=== PATIENT | male | born 1955 | race Caucasian/White ===

== ENCOUNTER 2017-01-07 17:05 | Inpatient (IN) ==
[2017-01-07] MEDS ORDERED: Ondansetron 4 MG/2 ML VIAL IVP ONE (18:09)
[2017-01-07] MEDS ORDERED: *HR* FentaNYL (PF) 100 MCG/2 ML VIAL IVP ONE (18:09)
--- NOTE | 2017-01-07 18:44 | Emergency Department Note ---
Disposition Clinical Impression: Pancreatitis Qualifiers: Chronicity: acute Pancreatitis type: other Acute pancreatitis complication: unspecified Qualified Code(s): K85.80 - Other acute pancreatitis without necrosis or infection Diverticulitis Qualifiers: Diverticulitis site: large intestine Diverticulitis bleeding: without bleeding Diverticulitis complication: without perforation or abscess Qualified Code(s): K57.32 - Diverticulitis of large intestine without perforation or abscess without bleeding Disposition: Admitted As Inpatient Condition: Fair Abdominal Pain HPI - General Chief Complaint: ED Abdominal Pain Stated Complaint: Abdominal Pain Time Seen by Provider: 01/07/17 17:08 Source: patient, EMS Nursing Notes Reviewed: Yes Vital Signs Reviewed: Yes - History of Present Illness HPI Narrative: 61-year-old male with a history of prediabetes, hypertension,, diverticulosis, CAD presents to the emergency department with a chief complaint of abdominal pain. He reports the pain being on the left side, has been sharp and nonradiating. He reports the pain being very severe. Has not had a He denies any fevers or chills. No nausea or vomiting. He hasn't had any appetite or eating in 2 days. Denies black or bloody stools. His last bowel movement was yesterday. he went to the [place] earlier today where they performed a CT scan showing Inflammation around the pancreas concerning for pancreatitis associate with an elevated lipase at 852 associated with a leukocytosis at 19.5. The inflammation extended around the stomach, duodenum and into the colon which was reported as being concerning for diverticulitis. He was given a dose of IV Zosyn and sent to the emergency department. In the ED he is complaining of left -sided abdominal pain particularly left lower quadrant. He denies any chest pain or shortness of breath. Denies any numbness or tingling to the extremities Pain Scale: 7 - Related Data Home Medications Medication Instructions Recorded Confirmed Atenolol [Tenormin] 75 mg PO DAILY 01/07/17 01/07/17 Budesonide/Formoterol 160/4.5 2 puff IH BIDR 01/07/17 01/07/17 [Symbicort 160/4.5] Cyclobenzaprine [Flexeril] 10 mg PO HS 01/07/17 01/07/17 Isosorbide MONOnitrate (24 HR) 60 mg PO DAILY 01/07/17 01/07/17 [Imdur] Lidocaine Patch [Lidoderm 5% patch] 1 each TP DAILY 01/07/17 01/07/17 Loratadine [Claritin] 10 mg PO DAILY 01/07/17 01/07/17 Multivitamin [Multi-Day Vitamins] 1 each PO DAILY 01/07/17 01/07/17 Omeprazole [PriLOSEC] 20 mg PO DAILY 01/07/17 01/07/17 Simvastatin [Zocor] 10 mg PO HS 01/07/17 01/07/17 Allergies Allergy/AdvReac Type Severity Reaction Status Date / Time codeine AdvReac Anxiety Verified 01/07/17 17:15 tramadol AdvReac Anxiety Verified 01/07/17 17:15 All systems ED: reviewed and negative except as stated. Constitutional: Denies: fever, chills Cardiovascular: Denies: chest pain Respiratory: Denies: cough, dyspnea Gastrointestinal: Reports: abdominal pain. Denies: nausea, vomiting, diarrhea, hematochezia Musculoskeletal: Denies: back pain Neurological: Denies: headache, weakness, numbness Abdominal Pain PMH - Past Medical History Medical history: Reports: COPD, coronary artery disease, hypertension, other Psychiatric history: Reports: depression - Social History Smoking status: Current every day smoker Alcohol use: Reports: heavy Drug use: Reports: none Physical Exam General: Appears to be uncomfortable but awake, alert and oriented Cardiovascular: Regular rate and rhythm. S1, S2. No murmurs, rubs or gallops. Respiratory: Breath sounds clear bilaterally. No wheezing, rales or rhonchi. No resp distress Abdomen: Patient has some voluntary guarding in the upper and left lower abdomen. There is no rebound. He has some diffuse tenderness as well. Normal bowel sounds. No palpable hernias or organomegaly Eyes: No scleral icterus conjunctiva clear HENT: No oral mucosal lesions. Moist mucous membranes Neuro: Alert and oriented 3, no lower extremity weakness Musculoskeletal: Mild bilateral ankle edema, no Tenderness or asymmetry Skin: No lesions. No diaphoresis. Normal turgor. Normal color Psych: Appropriate - General Limitations: no limitations General appearance: alert, in no apparent distress Course Course Narrative: CT scan shows evidence of pancreatitis and diverticulitis. Clinically I feel diverticulitis is likely because he is having quite a bit of left lower quadrant pain. However, he does have inflammation around the pancreas with elevated enzymes so he may have pancreatitis as well. He does have some history of drinking. He is afebrile with stable vital signs. Pain has been controlled the ED. IV antibiotics have already been given. I discussed with the on-call hospitalist, Ximena who accepts for admission, no further orders at this time Vital Signs Temperature 98.0 F 01/07/17 17:06 Pulse Rate 77 01/07/17 17:06 Respiratory Rate 18 01/07/17 17:06 Blood Pressure 117/71 01/07/17 17:06 O2 Sat by Pulse Oximetry 94 01/07/17 17:06 Temperature 98.0 F 01/07/17 17:06 Pulse Rate 75 01/07/17 18:27 Respiratory Rate 18 01/07/17 19:19 Blood Pressure 127/73 01/07/17 19:19 O2 Sat by Pulse Oximetry 93 01/07/17 18:27 Oxygen Delivery Oxygen Delivery Room Air Attestation Statement - Attestation Attestation: I examined this patient and my medical decision-making was reviewed with the [facility]/PA/Advanced Practice Nurse/Resident Physician. I agree with the documented findings, disposition and treatment plan as described except to the extent set forth below. 61-year-old male sent to the ED from the [facility] due to abdominal pain. He has had pain for the past 2 days along with nausea. No diarrhea. No measured fever or chills. No chest pain or dyspnea. No dysuria. He presented to [facility] today and was found to have diverticulitis and pancreatitis. He had a white count 19,000. He was given IV Zosyn and sent to the ED. Pleasant male in no apparent distress. Appears uncomfortable. Oropharynx extremities are ranged dry. Neck is supple. Trachea midline. Chest is clear to auscultation laterally. Abdomen bowel sounds are present. Moderate tenderness to the left abdomen mostly left lower quadrant. No distention. Extremities warm and dry. He was given IV fluids along with control of his pain and nausea. He is admitted to the hospitalist service for further evaluation.
[2017-01-07] MEDS ORDERED: Ringers Solution, Lactated 1,000 ML IVC SCH (18:45)
--- NOTE | 2017-01-07 19:08 | Internal Med History&Physical ---
Date of Encounter: 01/07/17 Time of Encounter: 19:08 Assessment and Plan (1) Pancreatitis Current visit: Yes Status: Acute pt with no significant alcohol consumption history, cholelithiasis or autoimmune history comes in with signs and symptoms concerning for epigastric pathology and found to have pancreatic inflammation on diagnostic imaging, we will get RUQ USG for evaluation of the biliary system, will also check for autoimmune etiology Qualifiers: Chronicity: acute Pancreatitis type: other Acute pancreatitis complication: no infection or necrosis Qualified Code(s): K85.80 - Other acute pancreatitis without necrosis or infection (2) Enteritis Current visit: Yes Status: Acute small bowel related, most likely local effect of the pancreatitis inflammation, we will manage conservatively (3) HTN (hypertension) Current visit: Yes Status: Chronic normotensive, will continue home antihypertensive regimen with BP monitoring Qualifiers: Hypertension type: essential hypertension Qualified Code(s): I10 - Essential (primary) hypertension (4) COPD (chronic obstructive pulmonary disease) Current visit: Yes Status: Chronic no wheezing noted, will do PRN nebs Qualifiers: COPD type: chronic bronchitis Chronic bronchitis type: simple Qualified Code(s): J41.0 - Simple chronic bronchitis (5) DJD (degenerative joint disease) Current visit: Yes Status: Chronic will do pain management Qualifiers: Osteoarthritis location: multiple joints Osteoarthritis type: primary Qualified Code(s): M15.0 - Primary generalized (osteo)arthritis Internal Medicine - H&P: HPI Chief complaint: abdominal pain Admitted From: Hospital to Hospital Transfer Plans for Post Hospital Care: Home History of present illness: Mr. Phillips is a 61 year old male with no prior history of acute pancreatitis/ gallstones/alcohol abuse was sent from the [place] for abdominal pain. e was in his usual state of health until 2 days prior when he began to experience upper mid abdominal pain a few minutes after eating cheese and other foods. The pain was described the as stabbing, patient did not have any description for it, he mentioned that it was so bad he had to catch his breath. This pain has been constant since inception and has had peaks of 10/10 with no radiation to the back pr anywhere else. He denies that any particular position gives him comfort. He reports chills but no fever, nausea or vomiting, he also denies diarrhea. He did not try any pain medication at home but took peptobismul with no effect. He reports having a similar kind of pain sometime ago so he was trying to wait this out. This morning he could not bear it anymore so he went to the [place] where abdominal/pelvic CT scan reported "peripancreatic strandy inflammatory change extending into the small bowel mesentery as well as free pelvic fluid. He was sent here for concern for acute pancreatitis for further management. Past Med Surg Social Fam HX - Past Medical History Source: patient, old records reviewed Medical history: COPD, coronary artery disease, diabetes (prediabetes), hypertension, other (Complete laceration, left long extensor tendon at distal interphalangeal joint, Horton esophagus, ) Psychiatric history: depression - Past Surgical History Surgical History: appendectomy, other (Open repair of extensor tendon laceration , left long finger) - Social History Smoking Status: Current every day smoker Smokeless Tobacco Status: No Alcohol use: rarely (reports about <1 pint of bourbon a month) Drug use: none Current living situation: Home - Independent, With Family Activity Level: Independent ambulation Additional social history: he is and lives at home with his - Family History Mother Living Status: Cause of : Breast Ca Hx Family Cardiac Disorders: Yes (Stroke) Hx Family Cancer: Yes (Breast Ca.) Brother Living Status: Cause of : Throat Ca. Hx Family Cancer: Yes (Throat Ca.) - Additional Family History Additional family history: both parents are , he does not know about his father's medical conditions but his mother had breast cancer and of stroke, no family history of GI problems to his knowledge Internal Medicine - H&P: Meds Atenolol [Tenormin] 75 mg PO DAILY 01/07/17 [History] Budesonide/Formoterol 160/4.5 [Symbicort 160/4.5] 2 puff IH BIDR 01/07/17 [ History] Cyclobenzaprine [Flexeril] 10 mg PO HS 01/07/17 [History] Isosorbide MONOnitrate (24 HR) [Imdur] 60 mg PO DAILY 01/07/17 [History] Lidocaine Patch [Lidoderm 5% patch] 1 each TP DAILY 01/07/17 [History] Loratadine [Claritin] 10 mg PO DAILY 01/07/17 [History] Multivitamin [Multi-Day Vitamins] 1 each PO DAILY 01/07/17 [History] Omeprazole [PriLOSEC] 20 mg PO DAILY 01/07/17 [History] Simvastatin [Zocor] 10 mg PO HS 01/07/17 [History] Allergies codeine Adverse Reaction (Verified 01/07/17 17:15) Anxiety tramadol Adverse Reaction (Verified 01/07/17 17:15) Anxiety All Systems PM: A 10-system review of systems was performed and is negative for pertinent findings except as documented above in the HPI. - Constitutional Vitals: Temp Pulse Resp BP Pulse Ox 98.0 F 75 18 127/73 93 01/07/17 17:06 01/07/17 18:27 01/07/17 18:27 01/07/17 18:27 01/07/17 18:27 General: Elderly male lying in bed all covered up in blankets, looks acutely unwell, awake, alert and oriented HEENT: NC/AT, LULY, EOMI, anicteric sclera, normal conjunctiva, No oral mucosal lesions, dry mucous membranes Cardiovascular: Regular rate and rhythm. S1, S2. No murmurs, rubs or gallops. Respiratory: Breath sounds clear bilaterally. No wheezing, rales or rhonchi. No resp distress Abdomen: moderate abdominal distension, diffuse tenderness worse in the epigastric area with mild guarding but no rebound, normal bowel sounds, no organomegaly Neuro: Alert and oriented 3, CN 2-12 grossly intact, non focal motor and sensory exam Musculoskeletal: Mild bilateral ankle edema, no Tenderness or asymmetry Skin: No lesions. No diaphoresis. Normal turgor. Normal color Psych: Appropriate Internal Med - H&P Results - Labs CBC & Chem 7: 01/07/17 19:41 01/07/17 19:41 - Diagnostic Studies CT scan - abdomen Status: image reviewed by me (reviewed CT abd/pelvis report)
[2017-01-07] MEDS ORDERED: Naloxone 0.4 MG/ML INJ IVP PRN (19:23)
[2017-01-07] MEDS ORDERED: Ondansetron 4 MG/2 ML VIAL IVP PRN (19:23)
[2017-01-07] MEDS ORDERED: Albuterol 2.5 MG/3 ML NEBULIZER IH PRN (19:25)
[2017-01-07 19:48] LABS: Basophils # 0.1 K/mcL (0.0-0.2); Basophils % 0.3 %; Eosinophils # 0.2 K/mcL (0.0-0.6); Hematocrit 44.8 % (37.5-50.1); Hemoglobin 15.3 g/dL (12.9-16.9); Immature Granulocytes % 0.5 % (0-4); Lymphocytes # 2.3 K/mcL (0.6-4.6); Lymphocytes % 12.2 %; Mean Corpuscular HGB Conc 34.2 g/dL (31.6-35.5); Mean Corpuscular Hemoglobin 31.5 pg (28.0-33.3); Mean Corpuscular Volume 92.4 fL (83.0-100.0); Monocytes # 1.4 K/mcL (0.0-1.3); Neutrophils # 15.2 K/mcL (1.6-8.9); Platelet Count 213 K/mcL (140-400); Red Blood Count 4.85 M/mcL (4.19-5.50); Red Cell Distribution Width 14.8 % (11.5-14.5)
[2017-01-07 20:04] LABS: Alanine Aminotransferase 30 Units/L (0-55); Albumin 3.4 g/dL (3.5-5.0); Albumin/Globulin Ratio 0.9 (1.1-2.2); Alkaline Phosphatase 57 Units/L (38-126); Aspartate Amino Transferase 23 Units/L (5-34); BUN/Creatinine Ratio 18 (6-26); Bilirubin,Total 2.1 mg/dL (0.2-1.2); Blood Urea Nitrogen 21 mg/dL (8-26); Calcium 8.5 mg/dL (8.6-10.8); Carbon Dioxide 25 mEq/L (19-29); Chloride 102 mEq/L (98-109); Globulin 3.8 g/dL (2.4-3.5); Glucose 72 mg/dL (70-99); Magnesium 2.2 mg/dL (1.6-2.6); Osmolality,Calculated 286 (280-300); Phosphorous 3.9 mg/dL (2.3-4.7); Potassium 3.7 mEq/L (3.5-4.5); Sodium 137 mEq/L (136-145); Total Protein 7.2 g/dL (6.0-8.3); eGFR For African Americans > 60 (> 60); eGFR For Non-African Americans > 60 (> 60)
[2017-01-07] MEDS ORDERED: *HR* Morphine 2 MG/ML SYRINGE IVP ONE (20:15)
[2017-01-07] MEDS: Ringers Solution, Lactated 1,000 ML IVC SCH (21:25)
[2017-01-07] MEDS: *HR* Heparin 5,000 UNIT/ML VIAL SQ SCH (23:39)
[2017-01-07] MEDS: *HR* Morphine 2 MG/ML SYRINGE IVP PRN (23:39)
[2017-01-08] MEDS: Budesonide/Formoterol 160/4.5 MDI IH SCH ×3 (00:22→20:35)
[2017-01-08 03:29] LABS: Basophils # 0.1 K/mcL (0.0-0.2); Basophils % 0.4 %; Eosinophils # 0.2 K/mcL (0.0-0.6); Eosinophils % 1.2 %; Hematocrit 41.9 % (37.5-50.1); Hemoglobin 14.2 g/dL (12.9-16.9); Immature Granulocytes % 0.7 % (0-4); Lymphocytes # 1.6 K/mcL (0.6-4.6); Lymphocytes % 9.5 %; Mean Corpuscular HGB Conc 33.9 g/dL (31.6-35.5); Mean Corpuscular Hemoglobin 31.2 pg (28.0-33.3); Mean Corpuscular Volume 92.1 fL (83.0-100.0); Mean Platelet Volume 10.6 fL (9.4-12.4); Monocytes # 1.3 K/mcL (0.0-1.3); Monocytes % 7.6 %; Neutrophils # 13.7 K/mcL (1.6-8.9); Platelet Count 208 K/mcL (140-400); Red Blood Count 4.55 M/mcL (4.19-5.50); Red Cell Distribution Width 14.5 % (11.5-14.5); Segmented Neutrophils % 80.6 %
[2017-01-08 03:41] LABS: Alanine Aminotransferase 25 Units/L (0-55); Albumin/Globulin Ratio 0.8 (1.1-2.2); Alkaline Phosphatase 57 Units/L (38-126); Aspartate Amino Transferase 21 Units/L (5-34); BUN/Creatinine Ratio 23 (6-26); Bilirubin,Total 1.5 mg/dL (0.2-1.2); Blood Urea Nitrogen 22 mg/dL (8-26); Calcium 8.2 mg/dL (8.6-10.8); Carbon Dioxide 22 mEq/L (19-29); Chloride 103 mEq/L (98-109); Globulin 3.6 g/dL (2.4-3.5); Glucose 67 mg/dL (70-99); Magnesium 1.9 mg/dL (1.6-2.6); Osmolality,Calculated 286 (280-300); Potassium 3.7 mEq/L (3.5-4.5); Sodium 137 mEq/L (136-145); Total Protein 6.6 g/dL (6.0-8.3); eGFR For African Americans > 60 (> 60); eGFR For Non-African Americans > 60 (> 60)
[2017-01-08] MEDS: *HR* Morphine 2 MG/ML SYRINGE IVP PRN ×3 (04:37→21:13)
[2017-01-08] MEDS: Ringers Solution, Lactated 1,000 ML IVC SCH (04:38)
[2017-01-08] MEDS: Acetaminophen 325 MG TABLET PO PRN ×2 (05:38→23:04)
--- NOTE | 2017-01-08 09:01 | Internal Med Progress Note ---
Date of Encounter: 01/08/17 Time of Encounter: 08:59 - Assessment and plan (1) Sepsis Current Visit: Yes Status: Acute Assessment and plan: likely secondary to enteritis/diverticulitis ( evidenced on CT of the abdomen) start Cipro and flagyl IV ( received Zosyn one dose at the [place]) clear liquids, may need to be back on NPO IVF Qualifiers: Sepsis type: sepsis due to unspecified organism Qualified Code(s): A41.9 - Sepsis, unspecified organism (2) Pancreatitis Current Visit: Yes Status: Acute Assessment and plan: lipase at the [place] > 800 unclear etiology IVF, morphine prn U/S showed biliary sludge but no stones No Chronic ETOH, says the alst time he drank was last week Qualifiers: Chronicity: acute Pancreatitis type: other Acute pancreatitis complication: no infection or necrosis Qualified Code(s): K85.80 - Other acute pancreatitis without necrosis or infection (3) Diverticulitis Current Visit: Yes Status: Acute Qualifiers: Diverticulitis site: large intestine Diverticulitis bleeding: without bleeding Diverticulitis complication: without perforation or abscess Qualified Code(s): K57.32 - Diverticulitis of large intestine without perforation or abscess without bleeding (4) HTN (hypertension) Current Visit: Yes Status: Chronic Assessment and plan: stable Qualifiers: Hypertension type: essential hypertension Qualified Code(s): I10 - Essential (primary) hypertension (5) COPD (chronic obstructive pulmonary disease) Current Visit: Yes Status: Chronic Qualifiers: COPD type: chronic bronchitis Chronic bronchitis type: simple Qualified Code(s): J41.0 - Simple chronic bronchitis (6) Tobacco abuse Current Visit: Yes Status: Acute Assessment and plan: smoking cessation counseling for 5 min , nicotine patch - Subjective Interval history: complains of left hemiabdomen tenderness and also epigastric tenderness, mild nausea, no dysuria, no CP or SOB, no fever - Constitutional Vitals: Temp Pulse Resp BP Pulse Ox 98.5 F 89 16 132/67 90 01/08/17 07:05 01/08/17 07:05 01/08/17 07:05 01/08/17 07:05 01/08/17 07:05 General appearance: Present: A&O X 3 - Head Head exam: Present: atraumatic, normocephalic - Eye Eye exam: Present: PERRL, conjuntiva pink, sclera anicteric Pupils: Present: PERRL - Neck Neck exam general surgery: Present: supple, trachea midline. Absent: lymphadenopathy - Respiratory Respiratory exam: Present: CTAB. Absent: accessory muscle use, rales, rhonchi, wheezes - Cardiovascular Cardiovascular exam: Present: RRR, +S1, +S2. Absent: diastolic murmur, gallop, rubs, systolic murmur - GI/Abdominal GI/Abdominal exam: Present: distended, normal bowel sounds, rebound, soft, tenderness (epigastric and LLq), no peritoneal signs - Extremities Exam Extremities exam: Present: warm, radial pulses palpable and symetrical. Absent : calf tenderness, cyanotic, pedal edema - Neurological Exam Neurological exam: Present: CN II-XII intact, oriented X3, no focal deficits. Absent: pronater drift, facial droop, speech deficit - Skin Skin exam: Present: dry, intact Internal Medicine: Result - Labs CBC & Chem 7: 01/08/17 02:39 01/08/17 02:39 Labs: Short CBC 01/07/17 01/08/17 Range/Units 19:41 02:39 WBC 19.2 H 17.0 H (4.3-11.1) K/mcL Hgb 15.3 14.2 (12.9-16.9) g/dL Hct 44.8 41.9 (37.5-50.1) % Plt Count 213 208 (140-400) K/mcL Neutrophils # 15.2 H 13.7 H (1.6-8.9) K/mcL BMP 01/07/17 01/08/17 19:41 02:39 Sodium 137 137 Potassium 3.7 3.7 Chloride 102 103 Carbon Dioxide 25 22 BUN 21 22 Creatinine 1.17 0.94 Glucose 72 67 L Calcium 8.5 L 8.2 L Liver Function 01/07/17 01/08/17 Range/Units 19:41 02:39 Total Bilirubin 2.1 H 1.5 H (0.2-1.2) mg/dL AST 23 21 (5-34) Units/L ALT 30 25 (0-55) Units/L Alkaline Phosphatase 57 57 (38-126) Units/L Albumin 3.4 L 3.0 L (3.5-5.0) g/dL - Impressions Impressions Abdomen Ultrasound 01/07/17 21:35 IMPRESSION: Moderate fatty infiltration liver. Suspect gallbladder sludge but no shadowing stones. D/ / Ruy Hansen MD / Ruy Hansen MD Interpreting Provider: Ruy Hansen MD Consult Discharge Plan - Plan Referrals: [facility] [Outside]
[2017-01-08 09:04] LABS: Lipase 74 Units/L (8-78)
[2017-01-08] MEDS: Multivit/Ca/Min/Fe/FA 1 TAB TABLET PO SCH (09:12)
[2017-01-08] MEDS: Isosorbide MONOnitrate (24 HR) 60 MG TAB.ER.24H PO SCH (09:12)
[2017-01-08] MEDS: *HR* Heparin 5,000 UNIT/ML VIAL SQ SCH ×3 (09:12→23:04)
[2017-01-08] MEDS: Loratadine 10 MG TABLET PO SCH (09:13)
[2017-01-08] MEDS: MetroNIDAZOLE 500 MG/100 ML 500 MG/100 ML BAG IVPB SCH ×3 (09:13→23:05)
[2017-01-08] MEDS: Nicotine 21 MG PATCH.TD24 TD SCH (11:03)
[2017-01-08] MEDS ORDERED: *HR* LORazepam 2 MG/ML VIAL IVP PRN (13:58)
[2017-01-09] MEDS: *HR* Morphine 2 MG/ML SYRINGE IVP PRN ×3 (03:47→21:11)
[2017-01-09 05:22] LABS: Hematocrit 41.9 % (37.5-50.1); Hemoglobin 14.1 g/dL (12.9-16.9); Mean Corpuscular HGB Conc 33.7 g/dL (31.6-35.5); Mean Corpuscular Hemoglobin 31.1 pg (28.0-33.3); Mean Corpuscular Volume 92.5 fL (83.0-100.0); Mean Platelet Volume 10.4 fL (9.4-12.4); Platelet Count 195 K/mcL (140-400); Red Blood Count 4.53 M/mcL (4.19-5.50); Red Cell Distribution Width 13.9 % (11.5-14.5)
[2017-01-09 05:32] LABS: BUN/Creatinine Ratio 20 (6-26); Blood Urea Nitrogen 16 mg/dL (8-26); Calcium 8.2 mg/dL (8.6-10.8); Carbon Dioxide 23 mEq/L (19-29); Chloride 103 mEq/L (98-109); Glucose 90 mg/dL (70-99); Osmolality,Calculated 281 (280-300); Potassium 3.7 mEq/L (3.5-4.5); Sodium 135 mEq/L (136-145); eGFR For African Americans > 60 (> 60); eGFR For Non-African Americans > 60 (> 60)
[2017-01-09] MEDS: Budesonide/Formoterol 160/4.5 MDI IH SCH ×2 (07:33→19:55)
[2017-01-09] MEDS: MetroNIDAZOLE 500 MG/100 ML 500 MG/100 ML BAG IVPB SCH ×2 (08:04→18:11)
[2017-01-09] MEDS: Loratadine 10 MG TABLET PO SCH (08:04)
[2017-01-09] MEDS: *HR* Heparin 5,000 UNIT/ML VIAL SQ SCH ×2 (08:04→18:11)
[2017-01-09] MEDS: Multivit/Ca/Min/Fe/FA 1 TAB TABLET PO SCH (08:04)
[2017-01-09] MEDS: Nicotine 21 MG PATCH.TD24 TD SCH (08:05)
[2017-01-09] MEDS: Isosorbide MONOnitrate (24 HR) 60 MG TAB.ER.24H PO SCH (08:05)
--- NOTE | 2017-01-09 12:22 | Internal Med Progress Note ---
Date of Encounter: 01/09/17 Time of Encounter: 12:20 - Assessment and plan (1) Sepsis Current Visit: Yes Status: Acute Assessment and plan: likely secondary to enteritis/diverticulitis ( evidenced on CT of the abdomen) Continue Cipro and flagyl IV day 2 ( received Zosyn one dose at the [place]) Advance diet Discontinue IVF Qualifiers: Sepsis type: sepsis due to unspecified organism Qualified Code(s): A41.9 - Sepsis, unspecified organism (2) Pancreatitis Current Visit: Yes Status: Acute Assessment and plan: lipase at the [place] > 800 unclear etiology Discontinued IVF, morphine prn U/S showed biliary sludge but no stones No Chronic ETOH, says the last time he drank was last week Qualifiers: Chronicity: acute Pancreatitis type: other Acute pancreatitis complication: no infection or necrosis Qualified Code(s): K85.80 - Other acute pancreatitis without necrosis or infection (3) Diverticulitis Current Visit: Yes Status: Acute Qualifiers: Diverticulitis site: large intestine Diverticulitis bleeding: without bleeding Diverticulitis complication: without perforation or abscess Qualified Code(s): K57.32 - Diverticulitis of large intestine without perforation or abscess without bleeding (4) HTN (hypertension) Current Visit: Yes Status: Chronic Assessment and plan: stable Qualifiers: Hypertension type: essential hypertension Qualified Code(s): I10 - Essential (primary) hypertension (5) COPD (chronic obstructive pulmonary disease) Current Visit: Yes Status: Chronic Qualifiers: COPD type: chronic bronchitis Chronic bronchitis type: simple Qualified Code(s): J41.0 - Simple chronic bronchitis (6) Tobacco abuse Current Visit: Yes Status: Acute Assessment and plan: smoking cessation counseling for 5 min , nicotine patch - Subjective Interval history: complains of left hemiabdomen tenderness 5/10 and also epigastric tenderness, mild nausea, no dysuria, no CP or SOB, had a fever of 100.3 last night - Constitutional Vitals: Temp Pulse Resp BP Pulse Ox 98.1 F 68 16 122/60 91 01/09/17 10:51 01/09/17 10:51 01/09/17 10:51 01/09/17 10:51 01/09/17 10:51 General appearance: Present: A&O X 3 - Head Head exam: Present: atraumatic, normocephalic - Eye Eye exam: Present: PERRL, conjuntiva pink, sclera anicteric Pupils: Present: PERRL - Neck Neck exam general surgery: Present: supple, trachea midline. Absent: lymphadenopathy - Respiratory Respiratory exam: Present: CTAB. Absent: accessory muscle use, rales, rhonchi, wheezes - Cardiovascular Cardiovascular exam: Present: RRR, +S1, +S2. Absent: diastolic murmur, gallop, rubs, systolic murmur - GI/Abdominal GI/Abdominal exam: Present: distended, normal bowel sounds, soft, tenderness ( Left hemiabdomen tenderness), no peritoneal signs. Absent: rebound - Extremities Exam Extremities exam: Present: warm, radial pulses palpable and symetrical. Absent : calf tenderness, cyanotic, pedal edema - Neurological Exam Neurological exam: Present: CN II-XII intact, oriented X3, no focal deficits. Absent: pronater drift, facial droop, speech deficit - Skin Skin exam: Present: dry, intact Internal Medicine: Result - Labs CBC & Chem 7: 01/09/17 05:01 01/09/17 05:01 Labs: Short CBC 01/09/17 Range/Units 05:01 WBC 13.6 H (4.3-11.1) K/mcL Hgb 14.1 (12.9-16.9) g/dL Hct 41.9 (37.5-50.1) % Plt Count 195 (140-400) K/mcL [facility] 01/09/17 05:01 Sodium 135 L Potassium 3.7 Chloride 103 Carbon Dioxide 23 BUN 16 Creatinine 0.79 Glucose 90 Calcium 8.2 L Consult Discharge Plan - Plan Referrals: [facility] [Outside]
[2017-01-10] MEDS: MetroNIDAZOLE 500 MG/100 ML 500 MG/100 ML BAG IVPB SCH ×2 (00:35→07:55)
[2017-01-10] MEDS: *HR* Heparin 5,000 UNIT/ML VIAL SQ SCH ×2 (00:35→07:56)
[2017-01-10 05:18] LABS: Hematocrit 41.3 % (37.5-50.1); Hemoglobin 13.8 g/dL (12.9-16.9); Mean Corpuscular HGB Conc 33.4 g/dL (31.6-35.5); Mean Corpuscular Hemoglobin 30.7 pg (28.0-33.3); Mean Corpuscular Volume 91.8 fL (83.0-100.0); Mean Platelet Volume 10.5 fL (9.4-12.4); Platelet Count 235 K/mcL (140-400); Red Cell Distribution Width 13.6 % (11.5-14.5)
[2017-01-10 05:34] LABS: BUN/Creatinine Ratio 17 (6-26); Blood Urea Nitrogen 13 mg/dL (8-26); Calcium 8.1 mg/dL (8.6-10.8); Carbon Dioxide 20 mEq/L (19-29); Chloride 103 mEq/L (98-109); Glucose 85 mg/dL (70-99); Osmolality,Calculated 277 (280-300); Potassium 3.6 mEq/L (3.5-4.5); Sodium 134 mEq/L (136-145); eGFR For African Americans > 60 (> 60); eGFR For Non-African Americans > 60 (> 60)
[2017-01-10] MEDS: Budesonide/Formoterol 160/4.5 MDI IH SCH (07:39)
[2017-01-10] MEDS: Nicotine 21 MG PATCH.TD24 TD SCH (07:56)
[2017-01-10] MEDS: Loratadine 10 MG TABLET PO SCH (07:56)
[2017-01-10] MEDS: Isosorbide MONOnitrate (24 HR) 60 MG TAB.ER.24H PO SCH (07:56)
[2017-01-10] MEDS: Multivit/Ca/Min/Fe/FA 1 TAB TABLET PO SCH (07:56)
[2017-01-10 10:00] LABS: ANA IgG by ELISA NONE DETECTED (None Detected); Immunoglobulin G Subclass 1 477 mg/dL (240-1118); Immunoglobulin G Subclass 2 333 mg/dL (124-549); Immunoglobulin G Subclass 3 23 mg/dL (21-134); Immunoglobulin G Subclass 4 75 mg/dL (1-123)
--- NOTE | 2017-01-10 10:59 | Discharge Summary ---
Date of Encounter: 01/10/17 Time of Encounter: 10:55 - Discharge Diagnosis (1) Sepsis Priority: Primary Status: Acute Comments: likely secondary to enteritis/diverticulitis ( evidenced on CT of the abdomen) Qualifiers: Sepsis type: sepsis due to unspecified organism Qualified Code(s): A41.9 - Sepsis, unspecified organism (2) Pancreatitis Priority: Primary Status: Acute Qualifiers: Chronicity: acute Pancreatitis type: other Acute pancreatitis complication: no infection or necrosis Qualified Code(s): K85.80 - Other acute pancreatitis without necrosis or infection (3) Diverticulitis Priority: Primary Status: Acute Qualifiers: Diverticulitis site: large intestine Diverticulitis bleeding: without bleeding Diverticulitis complication: without perforation or abscess Qualified Code(s): K57.32 - Diverticulitis of large intestine without perforation or abscess without bleeding (4) HTN (hypertension) Priority: Secondary Status: Chronic Qualifiers: Hypertension type: essential hypertension Qualified Code(s): I10 - Essential (primary) hypertension (5) COPD (chronic obstructive pulmonary disease) Priority: Secondary Status: Chronic Qualifiers: COPD type: chronic bronchitis Chronic bronchitis type: simple Qualified Code(s): J41.0 - Simple chronic bronchitis (6) Tobacco abuse Priority: Secondary Status: Acute - Discharge Medications Prescriptions: Morphine Immed Rel [Morphine Sulfate] 15 mg PO Q4HR PRN #25 tab PRN Reason: pain Ciprofloxacin [Cipro] 500 mg PO BID #10 tablet metroNIDAZOLE [Flagyl] 500 mg PO TID #15 tablet Home Medications: Atenolol [Tenormin] 75 mg PO DAILY 01/07/17 [History] Budesonide/Formoterol 160/4.5 [Symbicort 160/4.5] 2 puff IH BIDR 01/07/17 [ History] Cyclobenzaprine [Flexeril] 10 mg PO HS 01/07/17 [History] Isosorbide MONOnitrate (24 HR) [Imdur] 60 mg PO DAILY 01/07/17 [History] Lidocaine Patch [Lidoderm 5% patch] 1 each TP DAILY 01/07/17 [History] Loratadine [Claritin] 10 mg PO DAILY 01/07/17 [History] Multivitamin [Multi-Day Vitamins] 1 each PO DAILY 01/07/17 [History] Omeprazole [PriLOSEC] 20 mg PO DAILY 01/07/17 [History] Simvastatin [Zocor] 10 mg PO HS 01/07/17 [History] Ciprofloxacin [Cipro] 500 mg PO BID #10 tablet 01/10/17 [Rx] Morphine Immed Rel [Morphine Sulfate] 15 mg PO Q4HR PRN #25 tab 01/10/17 [Rx] metroNIDAZOLE [Flagyl] 500 mg PO TID #15 tablet 01/10/17 [Rx] Allergies/Adverse Reactions: Allergies codeine Adverse Reaction (Verified 01/07/17 17:15) Anxiety tramadol Adverse Reaction (Verified 01/07/17 17:15) Anxiety Procedures/tests Complete & Pending: Procedures Performed prior 72 hours Category Date Time Status abdominal ultrasound - limited [US abdomen limited] [US Exams 01/07/17 21:35 Completed ] Stat Date of admission: 01/07/17 18:56 Primary care physician: PCP [place] - Patient Status Disposition: Home, Self-Care Condition: Fair Overall status at discharge: patient is back to baseline - Discharge Instructions Follow Up With: [facility] [Outside] Additional Instructions: Follow-up with primary care physician within the next 7 days. Complete 5 more days of Flagyl and ciprofloxacin. Did not drink any alcohol while taking Flagyl. May have a low residue diet - Diet and Activity Activity: increase activity as tolerated Diet: low fat, low cholesterol (Low residue) Hospital course: Mr. Phillips is a 61 year old male with a past medical history of COPD not oxygen dependent, coronary artery disease, diabetes (prediabetes), hypertension , barrettes esophagus and no prior history of acute pancreatitis/gallstones/ alcohol abuse was sent from the [place] for abdominal pain. He was in his usual state of health until 2 days prior to his admission when he began to experience upper mid abdominal pain a few minutes after eating cheese and other foods. The pain was described the as stabbing, patient did not have any description for it, he mentioned that it was so bad he had to catch his breath. This pain has been constant, had peaks of 10/10 with no radiation to the back pr anywhere else. He reported chills but no fever, nausea or vomiting, he also denies diarrhea. He could not bear it anymore so he went to the [place] where abdominal/pelvic CT scan reported "peripancreatic stranding inflammatory change extending into the small bowel mesentery as well as free pelvic fluid. He was sent here for concern for acute pancreatitis for further management. Also possible enteritis and diverticulitis The patient's lipase was more than 800 measured at the [place]. Due to concerns of enteritis and diverticulitis he was started on ciprofloxacin and Flagyl IV, prior to that he received 1 dose of Zosyn at the [place]. U/S showed biliary sludge but no stones The patient is feeling much better today and he saw requesting to be discharged home. He was given the option to stay an additional day but would like to leave later today. Time spent discussing smoking cessation with patient: 3 to 10 minutes - Time Spent with Patient Total time spent providing and/or coordinating discharge services: Greater than 30 minutes (40 min) - Constitutional Vitals: Temp Pulse Resp BP Pulse Ox 99.2 F 80 16 166/81 93 01/10/17 06:40 01/10/17 06:40 01/10/17 07:40 01/10/17 06:40 01/10/17 07:40 General appearance: Present: A&O X 3 - Head Head exam: Present: atraumatic, normocephalic - Eye Eye exam: Present: PERRL, conjuntiva pink, sclera anicteric Pupils: Present: PERRL - Neck Neck exam general surgery: Present: supple, trachea midline. Absent: lymphadenopathy - Respiratory Respiratory exam: Present: decreased breath sounds, CTAB. Absent: accessory muscle use, rales, rhonchi, wheezes - Cardiovascular Cardiovascular exam: Present: RRR, +S1, +S2. Absent: diastolic murmur, gallop, rubs, systolic murmur - GI/Abdominal GI/Abdominal exam: Present: distended, normal bowel sounds, soft, no peritoneal signs. Absent: tenderness - Extremities Exam Extremities exam: Present: warm, radial pulses palpable and symetrical. Absent : calf tenderness, cyanotic, pedal edema - Neurological Exam Neurological exam: Present: CN II-XII intact, oriented X3, no focal deficits. Absent: pronater drift, facial droop, speech deficit - Skin Skin exam: Present: dry, intact
[2017-01-10 11:17] VITALS: BP 166/80
== END 2017-01-10 14:30 | disposition home or self-care (01) | DRG 871 ==
LOC: EMEROO 17:05 → 3ANU 18:56
PROVIDERS: ADMIT Registered Nurse; ATTEND Internal Medicine

== ENCOUNTER 2018-01-30 12:58 | Inpatient (IN) ==
[2018-01-30] MEDS ORDERED: 0.9 % Sodium Chloride 1,000 ML IVC ONE (13:08)
[2018-01-30] MEDS ORDERED: Ondansetron 4 MG/2 ML VIAL IVP ONE (13:08)
[2018-01-30] MEDS ORDERED: *HR* FentaNYL (PF) 100 MCG/2 ML VIAL IVP ONE ×3 (13:08→15:29)
--- NOTE | 2018-01-30 13:09 | Emergency Department Note ---
Disposition Clinical Impression: Acute pancreatitis, Abdominal pain Disposition: Admitted As Inpatient Condition: Fair General Adult HPI - General Chief complaint: ED Abdominal Pain Stated complaint: Abd Pain Time Seen by Provider: 01/30/18 13:00 Source: patient, EMS Limitations: no limitations - History of Present Illness Pain Scale: 10 - Related Data Home Medications Medication Instructions Recorded Confirmed Aspirin 325 mg PO DAILY 01/30/18 01/30/18 Atenolol [Tenormin] 25 mg PO DAILY 01/30/18 01/30/18 Ibuprofen [Motrin] 600 mg PO Q8HR PRN 01/30/18 01/30/18 Isosorbide MONOnitrate (24 HR) 60 mg PO DAILY 01/30/18 01/30/18 [Imdur] Loratadine [Allergy Relief] 10 mg PO DAILY 01/30/18 01/30/18 Methocarbamol [Robaxin-750] 750 mg PO Q8H PRN 01/30/18 01/30/18 Multivitamin [One Daily 1 tab PO DAILY 01/30/18 01/30/18 Multivitamin] Omeprazole [PriLOSEC] 20 mg PO DAILY 01/30/18 01/30/18 Simvastatin [Zocor] 10 mg PO HS 01/30/18 01/30/18 Allergies Allergy/AdvReac Type Severity Reaction Status Date / Time codeine AdvReac Anxiety Verified 01/30/18 15:57 tramadol AdvReac Anxiety Verified 01/30/18 15:57 Past Medical History - Past Medical History Medical history: Reports: COPD, coronary artery disease, diabetes, hypertension , other Surgical history: Reports: appendectomy, other (Open repair of extensor tendon laceration, left long finger) Psychiatric history: Reports: depression - Social History Smoking Status: Current every day smoker Smokeless Tobacco Status: No Alcohol use: Reports: rarely Drug use: Reports: none Physical Exam - General Limitations: no limitations General appearance: alert, in distress Course Vital Signs Temperature 98.4 F 01/30/18 12:59 Pulse Rate 85 01/30/18 12:59 Respiratory Rate 20 01/30/18 12:59 Blood Pressure 184/103 01/30/18 12:59 O2 Sat by Pulse Oximetry 94 01/30/18 12:59 Temperature 96.9 F L 01/30/18 17:10 Pulse Rate 97 06/03/18 17:10 Respiratory Rate 16 01/30/18 17:10 Blood Pressure 157/85 01/30/18 17:10 O2 Sat by Pulse Oximetry 95 01/30/18 17:10 Oxygen Delivery Oxygen Delivery Room Air Medical Decision Making - Lab Data Result diagrams: 01/30/18 14:31 Lab Results 01/30/18 01/30/18 Range/Units 14:31 15:49 Sodium 138 (136-145) mEq/L Potassium 4.4 (3.5-5.1) mEq/L Chloride 106 (98-107) mEq/L Carbon Dioxide 20 L (23-29) mEq/L BUN 16 (8-23) mg/dL Creatinine 0.84 (0.70-1.30) mg/dL Est GFR ( Amer) > 60 (> 60) Est GFR (Non-Af Amer) > 60 (> 60) BUN/Creatinine Ratio 19 (6-26) Glucose 185 H (70-105) mg/dL Calculated Osmolality 292 (280-300) Calcium 9.4 (8.6-10.3) mg/dL Total Bilirubin 0.8 (0.3-1.0) mg/dL AST 44 H (13-39) Units/L ALT 44 (7-52) Units/L Alkaline Phosphatase 68 (34-104) Units/L Serum Total Protein 7.4 (6.4-8.9) g/dL Albumin 4.3 (3.5-5.7) g/dL Globulin 3.1 (2.4-3.5) g/dL Albumin/Globulin Ratio 1.4 (1.1-2.2) Lipase > 1800 H (11-82) Units/L Ethyl Alcohol < 10 (Less than 10) mg/dL Attestation Statement - Attestation Attestation: I examined this patient and my medical decision-making was reviewed with the Resident Physician. I agree with the documented findings, disposition and treatment plan as described except to the extent set forth below. [id number] time provided Patient arrives from the [facility] with abdominal pain since this morning. He was diagnosed with acute pancreatitis. He states this is the second time this has happened-the last 1 year ago. He still has her gallbladder and drinks alcohol on a limited basis. He admits to drink alcohol last night. He is pale and diaphoretic on exam and appears uncomfortable. I did review the labs from the [facility]. I have requested a copied report of the CT abdomen and pelvis that was performed there.
--- NOTE | 2018-01-30 14:11 | Emergency Department Note ---
Disposition Clinical Impression: Acute pancreatitis Qualifiers: Pancreatitis type: unspecified pancreatitis type Acute pancreatitis complication: unspecified Qualified Code(s): K85.90 - Acute pancreatitis without necrosis or infection, unspecified Abdominal pain Qualifiers: Abdominal location: generalized Qualified Code(s): R10.84 - Generalized abdominal pain Disposition: Admitted As Inpatient Condition: Fair Forms: ED Satisfaction Letter, Work/School Release Time of Disposition: 14:19 Abdominal Pain HPI - General Chief Complaint: ED Abdominal Pain Stated Complaint: Abd Pain Time Seen by Provider: 01/30/18 13:00 Source: patient, EMS Mode of arrival: ambulatory Limitations: no limitations Nursing Notes Reviewed: Yes Vital Signs Reviewed: Yes - History of Present Illness HPI Narrative: Patient is a 62-year-old male who presents to [facility] ED with a chief complaint of generalized abdominal pain. States it started this morning when he woke up. Admits to nausea with some dry heaving this morning. Patient went to the [facility] where he had a workup completed which showed acute pancreatitis. Patient's lipase levels were over 3000. Denies any chest pain, difficulty breathing, problems with urination or bowel movements. No prior abdominal surgeries. Pt Subjective Complaint: abdominal pain Onset (ago): hour(s) Consistency: constant Location: diffuse Pain Severity: severe Pain Scale: 10 Radiation: none Improves with: nothing Worsens with: nothing Associated symptoms: Reports: nausea, vomiting. Denies: fever, chills, constipation, dysuria Treatments prior to arrival: none - Related Data Home Medications Medication Instructions Recorded Confirmed Atenolol [Tenormin] 75 mg PO DAILY 01/07/17 01/07/17 Budesonide/Formoterol 160/4.5 2 puff IH BIDR 01/07/17 01/07/17 [Symbicort 160/4.5] Cyclobenzaprine [Flexeril] 10 mg PO HS 01/07/17 01/07/17 Isosorbide MONOnitrate (24 HR) 60 mg PO DAILY 01/07/17 01/07/17 [Imdur] Lidocaine Patch [Lidoderm 5% patch] 1 each TP DAILY 01/07/17 01/07/17 Loratadine [Claritin] 10 mg PO DAILY 01/07/17 01/07/17 Multivitamin [Multi-Day Vitamins] 1 each PO DAILY 01/07/17 01/07/17 Omeprazole [PriLOSEC] 20 mg PO DAILY 01/07/17 01/07/17 Simvastatin [Zocor] 10 mg PO HS 01/07/17 01/07/17 Previous Rx's Medication Instructions Recorded Ciprofloxacin [Cipro] 500 mg PO BID #10 tablet 01/10/17 Morphine Immed Rel [Morphine 15 mg PO Q4HR PRN #25 tab 01/10/17 Sulfate] metroNIDAZOLE [Flagyl] 500 mg PO TID #15 tablet 01/10/17 Allergies Allergy/AdvReac Type Severity Reaction Status Date / Time codeine AdvReac Anxiety Verified 01/07/17 17:15 tramadol AdvReac Anxiety Verified 01/07/17 17:15 All systems ED: reviewed and negative except as stated. Abdominal Pain PMH - Past Medical History Medical history: Reports: COPD, coronary artery disease, diabetes, hypertension , other Psychiatric history: Reports: depression - Social History Smoking status: Current every day smoker Alcohol use: Reports: rarely Drug use: Reports: none Physical Exam - General Limitations: no limitations General appearance: alert, in distress - Head Head exam: atraumatic, normocephalic, normal inspection - Eye Eye exam: Present: normal appearance, EOMI - ENT ENT exam: normal exam, normal oropharynx - Neck Neck exam: Present: normal inspection, full ROM, trachea midline - Chest Chest inspection: Present: normal inspection, symmetric chest wall rise - Respiratory Respiratory exam: Present: normal lung sounds bilaterally - Cardiovascular Cardiovascular exam: Present: regular rate, normal rhythm, normal heart sounds - Abdominal Exam Abdominal exam: Present: soft, tenderness, normal bowel sounds. Absent: distention, guarding, rebound, rigidity Abdominal tenderness: Present: diffuse, moderate - Extremities Exam Extremities exam: Present: normal inspection, full ROM. Absent: tenderness, pedal edema - Neurological Exam Neurological exam: Present: alert, oriented X3 - Psychiatric Psychiatric exam: Present: normal affect, normal mood - Skin Skin exam: Present: warm, dry, intact, normal color Course Course Narrative: Patient seen and examined. Generalized abdominal pain. Diagnosed with acute pancreatitis. Patient does admit to taking 2 shots of alcohol yesterday. However family and him state he does not regularly drink. Discussed with hospitalist for admission. Dr. Levi accepted. Would like a repeat CMP and lipase. This is been ordered. Vital Signs Temperature 98.4 F 01/30/18 12:59 Pulse Rate 85 01/30/18 12:59 Respiratory Rate 20 01/30/18 12:59 Blood Pressure 184/103 01/30/18 12:59 O2 Sat by Pulse Oximetry 94 01/30/18 12:59 Temperature 98.4 F 01/30/18 12:59 Pulse Rate 85 01/30/18 12:59 Respiratory Rate 20 01/30/18 12:59 Blood Pressure 184/103 01/30/18 12:59 O2 Sat by Pulse Oximetry 94 01/30/18 12:59 Oxygen Delivery Oxygen Delivery Room Air Abdominal Pain - Medical Records Medical records reviewed: Yes I reviewed the patient's medical records. - Lab Data Lab results reviewed: Yes I reviewed the patient's lab results. - Radiology Data Radiology results reviewed: Yes I reviewed the patient's radiology results.
[2018-01-30] MEDS ORDERED: Naloxone 0.4 MG/ML INJ IVP PRN (14:51)
[2018-01-30] MEDS ORDERED: *HR* Promethazine 25 MG/ML VIAL IVP PRN (15:05)
[2018-01-30] MEDS ORDERED: *HR* LORazepam 2 MG/ML VIAL IVP PRN ×3 (15:05)
--- NOTE | 2018-01-30 15:05 | Internal Med History&Physical ---
Addendum entered and electronically signed by Neisha Oglesby 01/30/18 17:58: Please get GI consult in the morning. Original Note: <Neisha Oglesby - Last Filed: 01/30/18 17:47> Date of Encounter: 01/30/18 Time of Encounter: 15:04 Internal Medicine - H&P: HPI Chief complaint: Abdominal pain Admitted From: Hospital to Hospital Transfer Plans for Post Hospital Care: Home History of present illness: Mr. Phillips is a 62 year old male with history of hypertension, COPD, pancreatitis, and DJD, who was transferred from the [facility] for a CT that showed acute pancreatitis. The patient indicated abdominal pain, distention, and bloating that began at 8:00 this morning. He indicated he had a diarrheal stool last evening. From the [facility] reports, the patient's amylase was greater than 3800, lipase greater than 3000, and white blood cell count was 10.6. The patient is currently in pain and rate the pain 10/10. He indicated that the dilaudid he received at the [facility] worked best, he was given fentanyl in the ED with little effect. The patient indicated some alcohol use, but stated he does not abuse. Will get alcohol level. NPO. [facility] Will get RUQ ultrasound to r/o gallstones. Past Med Surg Social Fam HX - Past Medical History Medical history: COPD, coronary artery disease, diabetes, hypertension, other Additional medical history: Pancreatitis, Diverticulosis, DDD, Hernia, GERD Psychiatric history: depression - Past Surgical History Surgical History: appendectomy, other (Open repair of extensor tendon laceration , left long finger) Additional surgical history: L4 L5 back surgery - Social History Smoking Status: Current every day smoker Smokeless Tobacco Status: No Alcohol use: rarely Drug use: none - Family History Mother Living Status: Hx Family Cardiac Disorders: Yes (Stroke) Hx Family Cancer: Yes (Breast Ca.) Brother Living Status: Hx Family Cancer: Yes (Throat Ca.) Internal Medicine - H&P: Meds Aspirin 325 mg PO DAILY 01/30/18 [History] Atenolol [Tenormin] 25 mg PO DAILY 01/30/18 [History] Ibuprofen [Motrin] 600 mg PO Q8HR PRN 01/30/18 [History] Isosorbide MONOnitrate (24 HR) [Imdur] 60 mg PO DAILY 01/30/18 [History] Loratadine [Allergy Relief] 10 mg PO DAILY 01/30/18 [History] Methocarbamol [Robaxin-750] 750 mg PO Q8H PRN 01/30/18 [History] Multivitamin [One Daily Multivitamin] 1 tab PO DAILY 01/30/18 [History] Omeprazole [PriLOSEC] 20 mg PO DAILY 01/30/18 [History] Simvastatin [Zocor] 10 mg PO HS 01/30/18 [History] 3 Allergy/AdvReac Type Severity Reaction Status Date / Time codeine AdvReac Anxiety Verified 01/30/18 15:57 tramadol AdvReac Anxiety Verified 01/30/18 15:57 All Systems PM: A 10-system review of systems was performed and is negative for pertinent findings except as documented above in the HPI. - Constitutional Constitutional: no chills, no fever(s), no night sweats - EENT Eyes: no change in vision, no discharge, no pain, no photophobia Ears: no ear discharge, no ear pain, no tinnitus Nose, mouth and throat: no dysphagia, no nasal discharge, no neck pain, no sore throat - Cardiovascular Cardiovascular ROS IM: no chest pain, no diaphoresis, no dyspnea, no lightheadedness, no palpitations, no syncope - Respiratory Respiratory: no cough, no dyspnea, no wheezing, no excessive phlegm production - Gastrointestinal Gastrointestinal: abdominal pain, bloating, diarrhea, nausea, no hematemesis, no hematochezia, no melena, no vomiting - Musculoskeletal Musculoskeletal ROS IM: no numbness, no tingling - Integumentary Integumentary IM: no rash, no unusual bruising - Neurological Neurological ROS: no confusion, no convulsions, no focal weakness, no numbness, no tingling, no tremor(s) - Hematologic/Lymphatic Hematologic/Lymphatic: no easy bruising - Constitutional Vitals: Temp Pulse Resp BP Pulse Ox 98.4 F 89 20 145/90 95 01/30/18 12:59 01/30/18 14:20 01/30/18 14:20 01/30/18 14:20 01/30/18 14:20 General appearance: Present: A&O X 3, answers questions appropriately - Head Head exam: Present: atraumatic, normocephalic - Eye Eye exam: Present: PERRL, conjuntiva pink, sclera anicteric Pupils: Present: PERRL - Neck Neck exam general surgery: Present: supple, trachea midline. Absent: lymphadenopathy - Respiratory Respiratory exam: Present: CTAB. Absent: accessory muscle use, rales, rhonchi, wheezes - Cardiovascular Cardiovascular exam: Present: RRR, +S1, +S2. Absent: diastolic murmur, gallop, rubs, systolic murmur - GI/Abdominal GI/Abdominal exam: Present: distended, normal bowel sounds, soft, tenderness, no peritoneal signs - Extremities Exam Extremities exam: Present: warm, radial pulses palpable and symmetrical. Absent : calf tenderness, cyanotic, pedal edema - Neurological Exam Neurological exam: Present: CN II-XII intact, oriented X3, no focal deficits. Absent: pronater drift, facial droop, speech deficit - Skin Skin exam: Present: dry, intact Internal Med - H&P Results - Labs CBC & Chem 7: 01/30/18 14:31 - Assessment and plan (1) Pancreatitis Current Visit: No Status: Acute Assessment and plan: NPO Abdominal US-RUQ to r/o gallstones Pain viflzit-Fdutcglrb-Onhgppet 25-50 mcg iv q4h prn (Fentanyl discontinued per pharmacy request). Will try oxycodone prn. FLP in am to r/o elevated cholesterol Patient is a social drinker, does not binge drink Iv rocephin for pancreatic infection IVF's Zofran for N/V prn Qualifiers: Chronicity: acute Pancreatitis type: unspecified pancreatitis type Acute pancreatitis complication: unspecified Qualified Code(s): K85.90 - Acute pancreatitis without necrosis or infection, unspecified (2) Abdominal pain Current Visit: Yes Status: Acute Assessment and plan: NPO Abdominal US-RUQ to r/o gallstones Pain qzeyife-Olumikflw-Rghenpjb 25-50 mcg iv q4h prn (Fentanyl discontinued per pharmacy request). Will try oxycodone prn. FLP in am to r/o elevated cholesterol IVF's Zofran for N/V prn Qualifiers: Abdominal location: generalized Qualified Code(s): R10.84 - Generalized abdominal pain (3) HTN (hypertension) Current Visit: No Status: Chronic Assessment and plan: Bp is controlled likely due to pain Continue home medications Hydralazine 10 mg iv q6 hours prn Qualifiers: Hypertension type: essential hypertension Qualified Code(s): I10 - Essential (primary) hypertension - Time Spent With Patient Total time spent is greater than 50% in coordination of care (as documented) at patient's floor/unit and/or counseling patient: <Ramya Levi - Last Filed: 01/31/18 08:11> Date of Encounter: 01/30/18 Internal Medicine - H&P: HPI History of present illness: Mr. Phillips is a 62 year old male All Systems PM: A 10-system review of systems was performed and is negative for pertinent findings except as documented above in the HPI. - Constitutional Vitals: Temp Pulse Resp BP Pulse Ox 98.9 F 119 119 149/93 28 01/31/18 07:46 01/31/18 07:46 01/31/18 07:46 01/31/18 07:46 01/31/18 07:46 Internal Med - H&P Results - Labs CBC & Chem 7: 01/31/18 05:22 01/31/18 05:22 Labs: Short CBC 01/31/18 Range/Units 05:22 WBC 27.2 H (4.3-11.1) K/mcL Hgb 18.5 H (12.9-16.9) g/dL Hct 55.0 H (37.5-50.1) % Plt Count 209 (140-400) K/mcL Neutrophils # 24.4 H (1.6-8.9) K/mcL BMP 01/31/18 05:22 Sodium 137 Potassium 6.4 H D Chloride 108 H Carbon Dioxide 16 L BUN 30 H Creatinine 1.95 H Glucose 188 H Calcium 7.6 L Liver Function 01/31/18 Range/Units 05:22 Total Bilirubin 1.0 (0.3-1.0) mg/dL AST 54 H (13-39) Units/L ALT 36 (7-52) Units/L Alkaline Phosphatase 54 (34-104) Units/L Albumin 3.8 (3.5-5.7) g/dL - Attending Attestation I have personally performed a face to face evaluation on this patient. I have reviewed and agree with the care plan provided by HEEL PAINTER Neisha Oglesby. History and Exam by me shows: Mr. Phillips is a 62 year old male with history of hypertension, COPD, pancreatitis, and DJD, who was transferred from the [facility] for acute pancreatitis. Pt has been having worsening abdominal pain, so he went to [facility] where his CT of abd showed acute pancreatitis and lipase level critically elevated at >3000. The patient indicated abdominal pain, distention , and bloating that began at 8:00 in the morning. He indicated he had a diarrheal stool last evening. amylase was greater than 3800, lipase greater than 3000, and white blood cell count was 10.6. Gen: Mild distress with pain Chest: Diminished BS b/l Heart: S1S2+ RRR Abd: Soft, moderate tenderness at periumbelical and RUQ region a/p 1. Severe acute pancreatitis Aggressive IV hydration NPO IV analgesics trend on lipase and amylase get RUQ u/s of abd in AM Talked to pt and his family at bed side and updated them about current care - Time Spent With Patient Total time spent is greater than 50% in coordination of care (as documented) at patient's floor/unit and/or counseling patient:
[2018-01-30 15:18] LABS: Alanine Aminotransferase 44 Units/L (7-52); Albumin 4.3 g/dL (3.5-5.7); Albumin/Globulin Ratio 1.4 (1.1-2.2); Alkaline Phosphatase 68 Units/L (34-104); Aspartate Amino Transferase 44 Units/L (13-39); BUN/Creatinine Ratio 19 (6-26); Bilirubin,Total 0.8 mg/dL (0.3-1.0); Blood Urea Nitrogen 16 mg/dL (8-23); Calcium 9.4 mg/dL (8.6-10.3); Carbon Dioxide 20 mEq/L (23-29); Chloride 106 mEq/L (98-107); Globulin 3.1 g/dL (2.4-3.5); Glucose 185 mg/dL (70-105); Lipase > 1800 Units/L (11-82); Osmolality,Calculated 292 (280-300); Potassium 4.4 mEq/L (3.5-5.1); Sodium 138 mEq/L (136-145); Total Protein 7.4 g/dL (6.4-8.9); eGFR For African Americans > 60 (> 60); eGFR For Non-African Americans > 60 (> 60)
[2018-01-30] MEDS ORDERED: *HR* FentaNYL (PF) 100 MCG/2 ML VIAL IVP PRN ×2 (15:29→15:35)
[2018-01-30] MEDS ORDERED: *HR* OxyCODONE/APAP 10/325 TABLET PO PRN (16:08)
[2018-01-30] MEDS: cefTRIAXone 2,000 MG in Water for inj. (sterile) 20 ML 20 ML IVP SCH (18:04)
[2018-01-30] MEDS: 0.9 % Sodium Chloride 1,000 ML IVC SCH (18:04)
[2018-01-30] MEDS: *HR* FentaNYL (PF) 100 MCG/2 ML VIAL IVP PRN ×2 (18:50→23:25)
[2018-01-30] MEDS: MORPHINE SUL Oral CONC 10 MG/0.5 ML ORAL.SYG SL PRN (20:34)
[2018-01-31] MEDS ORDERED: 0.9 % Sodium Chloride 1,000 ML IVC ONE ×2 (00:48→06:55)
[2018-01-31] MEDS: MORPHINE SUL Oral CONC 10 MG/0.5 ML ORAL.SYG SL PRN ×4 (02:04→20:14)
[2018-01-31] MEDS: 0.9 % Sodium Chloride 1,000 ML IVC SCH ×5 (03:07→19:10)
[2018-01-31] MEDS: *HR* FentaNYL (PF) 100 MCG/2 ML VIAL IVP PRN ×3 (04:51→14:38)
[2018-01-31] MEDS: Ondansetron 4 MG/2 ML VIAL IVP PRN ×2 (04:54→11:15)
[2018-01-31] MEDS: cefTRIAXone 2,000 MG in Water for inj. (sterile) 20 ML 20 ML IVP SCH (04:56)
[2018-01-31 05:56] LABS: Immature Granulocytes % 0.6 % (0-4)
[2018-01-31 05:57] LABS: Basophils # 0.1 K/mcL (0.0-0.2); Basophils % 0.2 %; Hemoglobin 18.5 g/dL (12.9-16.9); Lymphocytes # 0.9 K/mcL (0.6-4.6); Lymphocytes % 3.2 %; Mean Corpuscular HGB Conc 33.6 g/dL (31.6-35.5); Mean Corpuscular Hemoglobin 31.8 pg (28.0-33.3); Mean Corpuscular Volume 94.5 fL (83.0-100.0); Mean Platelet Volume 10.8 fL (9.4-12.4); Monocytes # 1.7 K/mcL (0.0-1.3); Monocytes % 6.3 %; Neutrophils # 24.4 K/mcL (1.6-8.9); Platelet Count 209 K/mcL (140-400); Red Blood Count 5.82 M/mcL (4.19-5.50); Red Cell Distribution Width 14.9 % (11.5-14.5); Segmented Neutrophils % 89.7 %
[2018-01-31 06:25] LABS: Alanine Aminotransferase 36 Units/L (7-52); Albumin 3.8 g/dL (3.5-5.7); Albumin/Globulin Ratio 1.4 (1.1-2.2); Alkaline Phosphatase 54 Units/L (34-104); Amylase 1100 Units/L (29-103); Aspartate Amino Transferase 54 Units/L (13-39); BUN/Creatinine Ratio 15 (6-26); Blood Urea Nitrogen 30 mg/dL (8-23); Calcium 7.6 mg/dL (8.6-10.3); Carbon Dioxide 16 mEq/L (23-29); Chloride 108 mEq/L (98-107); Chol/HDL Ratio 3.7 (0-4.9); Cholesterol 103 mg/dL (< 200); Globulin 2.8 g/dL (2.4-3.5); Glucose 188 mg/dL (70-105); HDL Cholesterol 28 mg/dL (40-59); LDL Cholesterol,Calculated 49 mg/dL (0-99); Lipase > 1800 Units/L (11-82); Magnesium 1.6 mg/dL (1.6-2.6); Osmolality,Calculated 295 (280-300); Potassium 6.4 mEq/L (3.5-5.1); Sodium 137 mEq/L (136-145); Total Protein 6.6 g/dL (6.4-8.9); Triglycerides 131 mg/dL (< 150); eGFR For African Americans 42 (> 60); eGFR For Non-African Americans 35 (> 60)
[2018-01-31 06:32] LABS: Macrocytosis Present (Not Present); Platelet Estimate Normal (Normal); Reactive Lymphocytes Present (Not Present); Smudge Cells Present (Not Present)
[2018-01-31 06:33] LABS: Large Platelets Present (Not Present)
[2018-01-31] MEDS ORDERED: Calcium Gluconate 2,000 MG in 0.9 % Sodium Chloride 100 ML IVPB ONE ×2 (07:01→18:17)
[2018-01-31] MEDS ORDERED: *HR* Dextrose 50 % in Water (Syg) 50 ML SYRINGE IVP ONE ×2 (07:06→18:09)
[2018-01-31] MEDS ORDERED: Insulin Human Regular 10 UNIT in 0.9 % Sodium Chloride 10 ML IV ONE ×2 (07:06→18:09)
[2018-01-31] MEDS ORDERED: Albuterol 2.5 MG/3 ML NEBULIZER IH ONE (07:07)
[2018-01-31] MEDS ORDERED: 0.9 % Sodium Chloride 1,000 ML IVC SCH (07:15)
[2018-01-31] MEDS ORDERED: Piperacillin/Tazobactam 3.375 GM in 0.9 % Sodium Chloride Mini Bag 100 ML IVPB SCH (08:00)
--- NOTE | 2018-01-31 09:18 | Internal Med Progress Note ---
Date of Encounter: 01/31/18 Time of Encounter: 08:00 - Assessment and plan (1) Sepsis Current Visit: No Status: Acute Assessment and plan: Pt does meet sepsis / SIRS criteria with elevated WBC, LA, Tachycardia and soruce of inf as pancreatitis changed abx to Zosyn aggressive IV hydration trend on WBC and Lactic acid Qualifiers: Sepsis type: sepsis due to unspecified organism Qualified Code(s): A41.9 - Sepsis, unspecified organism (2) Acute pancreatitis Current Visit: Yes Status: Acute Assessment and plan: Severe acute pancreatitis unclear etiology LFT's and Alk phos - WNL Lipase still > 1800 GI consulted.. Spoke Dr. Gallo.. appreciate the help NPO IV hydration switched the abx to Zosyn IV analgesics Qualifiers: Pancreatitis type: unspecified pancreatitis type Acute pancreatitis complication: unspecified Qualified Code(s): K85.90 - Acute pancreatitis without necrosis or infection, unspecified (3) Lactic acidosis Current Visit: Yes Status: Acute Assessment and plan: trend on LA (4) YEFRI (acute kidney injury) Current Visit: Yes Status: Acute Assessment and plan: Due to dehydration / prerenal with sepsis cont IVF close monitoring (5) Hyperkalemia Current Visit: Yes Status: Acute Assessment and plan: Due to dehydration Insulin and Calcium Gluconate given already Reviewed EKG showed sinus tachcyardia, peak T wave noticed cont close monitoring repeat labs in 6 hrs (6) Cholelithiases Current Visit: Yes Status: Acute Assessment and plan: Noticed gallstones on CT of abd report from [facility] US ordered Qualifiers: Cholecystitis presence: without cholecystitis Biliary obstruction: without biliary obstruction Qualified Code(s): K80.20 - Calculus of gallbladder without cholecystitis without obstruction (7) COPD (chronic obstructive pulmonary disease) Current Visit: No Status: Chronic Assessment and plan: not in exacerbation Qualifiers: COPD type: chronic bronchitis Chronic bronchitis type: simple Qualified Code(s): J41.0 - Simple chronic bronchitis - Time Spent With Patient Total time spent is greater than 50% in coordination of care (as documented) at patient's floor/unit and/or counseling patient: - Subjective Interval history: Mr. Phillips is a 62 year old male with history of hypertension, COPD, pancreatitis, and DJD, who was transferred from the [facility] for acute pancreatitis. Pt has been having worsening abdominal pain, so he went to [facility] where his CT of abd showed acute pancreatitis and lipase level critically elevated at >3000. The patient indicated abdominal pain, distention , and bloating that began in the morning. He indicated he had a diarrheal stool last evening. amylase was greater than 3800, lipase greater than 3000, and white blood cell count was 10.6. Pt was admitted here and started him on IV hydration and empirical abx Rocephin. Over night he became more tachycardic, c/o more abdominal pain and felt worsening symptoms. He was transferred to step down unit 2N for close monitoring. This morning when I saw him on 2N he stated his is feeling worse today. Abd pain + . Nausea + . No vomitings. - Constitutional Vitals: Temp Pulse Resp BP Pulse Ox 98.9 F 119 20 149/93 94 01/31/18 07:46 01/31/18 07:46 01/31/18 08:20 01/31/18 07:46 01/31/18 08:20 General appearance: Present: cooperative, A&O X 3, severe distress, answers questions appropriately - Head Head exam: Present: atraumatic, normal inspection - Neck Neck exam general surgery: Present: supple - Respiratory Respiratory exam: Present: decreased breath sounds. Absent: rales, respiratory distress, rhonchi, wheezes - Cardiovascular Cardiovascular exam: Present: +S1, +S2, tachycardia. Absent: systolic murmur - GI/Abdominal GI/Abdominal exam: Present: normal bowel sounds, soft, tenderness (Epigastric and edilson umbelical region). Absent: rebound, rigid - Extremities Exam Extremities exam: Absent: calf tenderness, pedal edema, tenderness - Back Exam Back exam: Absent: CVA tenderness (L), CVA tenderness (R) - Neurological Exam Neurological exam: Present: alert, oriented X3 - Psychiatric Psychiatric exam: Present: anxious Internal Medicine: Result - Labs CBC & Chem 7: 01/31/18 05:22 01/31/18 05:22 Labs: Short CBC 01/31/18 Range/Units 05:22 WBC 27.2 H (4.3-11.1) K/mcL Hgb 18.5 H (12.9-16.9) g/dL Hct 55.0 H (37.5-50.1) % Plt Count 209 (140-400) K/mcL Neutrophils # 24.4 H (1.6-8.9) K/mcL BMP 01/31/18 05:22 Sodium 137 Potassium 6.4 H D Chloride 108 H Carbon Dioxide 16 L BUN 30 H Creatinine 1.95 H Glucose 188 H Calcium 7.6 L Liver Function 01/31/18 Range/Units 05:22 Total Bilirubin 1.0 (0.3-1.0) mg/dL AST 54 H (13-39) Units/L ALT 36 (7-52) Units/L Alkaline Phosphatase 54 (34-104) Units/L Albumin 3.8 (3.5-5.7) g/dL Consult Discharge Plan - Plan [facility]Primary Care Provider[facility] -
[2018-01-31] MEDS: Isosorbide MONOnitrate (24 HR) 60 MG TAB.ER.24H PO SCH (11:16)
[2018-01-31] MEDS: Loratadine 10 MG TABLET PO SCH (11:16)
[2018-01-31] MEDS: Vitamin B Complex/Vit C/Vit E 1 EACH TABLET PO SCH (11:16)
[2018-01-31] MEDS: Pantoprazole 40 MG VIAL IVP SCH (11:17)
[2018-01-31] MEDS: Thiamine (B-1) 100 MG TABLET PO SCH (11:17)
[2018-01-31] MEDS: Folic Acid 1 MG TABLET PO SCH (11:17)
[2018-01-31 11:49] LABS: Calcium 7.5 mg/dL (8.6-10.3); Potassium 5.3 mEq/L (3.5-5.1)
[2018-01-31 12:14] LABS: Bilirubin,Urine Small (Negative); Blood,Urine Trace (Negative); Clarity,Urine Turbid (Clear); Color,Urine Dark Yellow (Yellow); Glucose,Urine (UA) Normal (Normal); Ketones,Urine 15 mg/dL (Negative); Leukocyte Esterase,Urine Trace (Negative); Nitrite,Urine Negative (Negative); Protein,Urine 30 mg/dL (Neg-Trace); Specific Gravity,Urine 1.025 (1.010-1.025); Urobilinogen,Urine Normal (Normal)
[2018-01-31 12:17] LABS: Bacteria,Urine None Seen per hpf (None-Few); RBC,Urine 0-3 per hpf (0-3); Squamous Epithelial Cell,Urine Many per lpf (None-Few)
[2018-01-31 12:38] LABS: Granular Casts,Urine Few per lpf (None Seen); Hyaline Casts,Urine Few per lpf (None-Few)
--- NOTE | 2018-01-31 13:51 | Gastroenterology Consult Note ---
<Deniz Aguero Ty - Last Filed: 01/31/18 13:49> Date of Encounter: 01/31/18 Time of Encounter: 11:05 - Assessment and plan (1) Pancreatitis Current Visit: No Status: Acute Assessment and plan: Pancreatitis could be secondery to gallstones vs ETOH. Pt is an occasional drinker. [facility], the patient's amylase was greater than 3800, lipase greater than 3000, and white blood cell count was 10.6. Today lipase > 1800 and amylase 1100. BISAP score 3. AST slightly elevated, otherwise LFTs normal. Check IgG4, ionized calcium, and LUIS A. Triglycerides normal at 131. Continue IV fluids at 200 ml/hr, anti-emetics and pain control. Complete RUQ US , Dr. Gallo to review imaging. Qualifiers: Chronicity: acute Pancreatitis type: unspecified pancreatitis type Acute pancreatitis complication: unspecified Qualified Code(s): K85.90 - Acute pancreatitis without necrosis or infection, unspecified (2) Sepsis Current Visit: No Status: Acute Assessment and plan: Management per primary team. Qualifiers: Sepsis type: sepsis due to unspecified organism Qualified Code(s): A41.9 - Sepsis, unspecified organism - Time Spent With Patient Total time spent is greater than 50% in coordination of care (as documented) at patient's floor/unit and/or counseling patient: GI History of Present Illness - Data of Consult Patient: new to practice Consult date: 01/31/18 Requesting Physician: Ramya Levi MD - Consult Narrative Reason for consult: Acute pancreatitis History of present illness: Mr. Phillips is a 62 year old male with PMHx of COPD, CAD, DM, HTN, and pancreatitis who was transferred from the [facility] for a CT that showed acute pancreatitis. The patient indicated abdominal pain, distention, and bloating that began at 8:00 the morning of admission. [facility], the patient's amylase was greater than 3800, lipase greater than 3000, and white blood cell count was 10.6. The patient indicated some alcohol use, but stated he does not abuse. We were consulted to evaluate pancreatitis. He has been started on IVFs, anti-emetics, and pain control. RUQ US has been ordered. Patient is NPO. Procedures: None NSAIDs: Ibuprofen, ASA Anticoagulation: None Past Med Surg Social Fam HX - Past Medical History Medical history: COPD, coronary artery disease, diabetes, hypertension, other Additional medical history: Pancreatitis, Diverticulosis, DDD, Hernia, GERD Psychiatric history: depression - Past Surgical History Surgical History: appendectomy, other (Open repair of extensor tendon laceration , left long finger) Additional surgical history: L4 L5 back surgery - Social History Smoking Status: Current every day smoker Packs per day: 1/2 Smokeless Tobacco Status: No Alcohol use: rarely Drug use: none - Family History Mother Living Status: Hx Family Cardiac Disorders: Yes (Stroke) Hx Family Cancer: Yes (Breast Ca.) Brother Living Status: Hx Family Cancer: Yes (Throat Ca.) - Gastrointestinal Gastrointestinal: Present: as per HPI - Constitutional Constitutional: as per HPI - EENT Eyes: as per HPI Ears: Present: as per HPI Nose, mouth and throat: Present: as per HPI - Cardiovascular Cardiovascular ROS: Present: as per HPI - Respiratory Respiratory IM: Present: as per HPI - Genitourinary Genitourinary: Absent: change in color, Urinary frequency - Neurological ROS Neurological GI: Present: as per HPI - Hematologic/Lymphatic Hematologic/Lymphatic pediatric: Present: as per HPI - Musculoskeletal Musculoskeletal ROS GI: Present: as per HPI - Integumentary Integumentary GI: Present: as per HPI - Psychiatric ROS Psychiatric GI: Present: as per HPI - Endocrine Endocrine IM: Present: as per HPI - Constitutional Vitals: Temp Pulse Resp BP Pulse Ox 98.9 F 119 20 149/93 94 01/31/18 07:46 01/31/18 07:46 01/31/18 08:20 01/31/18 07:46 01/31/18 08:20 General appearance: Present: cooperative, mild distress, A&O X 3, answers questions appropriately - Head Head exam: Present: atraumatic, normocephalic - Eye Eye exam: Present: normal appearance, sclera anicteric - ENT ENT exam: Present: mucous membranes dry - Neck Neck exam general surgery: Present: normal inspection, trachea midline - Respiratory Respiratory exam: Present: decreased breath sounds, CTAB. Absent: rales, rhonchi - Cardiovascular Cardiovascular exam: Present: RRR, +S1, +S2 - GI/Abdominal GI/Abdominal exam: Present: guarding, normal bowel sounds, soft, tenderness ( epigastric, RUQ), no peritoneal signs. Absent: distended, firm - Rectal Rectal exam: Present: deferred - Extremities Exam Extremities exam: Present: warm - Neurological Exam Neurological exam: Present: no focal deficits - Psychiatric Psychiatric exam: Present: normal affect, normal mood - Skin Skin exam: Present: dry, intact, normal color, warm Results - Labs CBC & Chem 7: 01/31/18 05:22 01/31/18 11:08 Labs: Last Result Calcium 7.5 mg/dL (8.6-10.3) L 01/31/18 11:08 Triglycerides 131 mg/dL (< 150) 01/31/18 05:22 Entire Visit Hgb 18.5 g/dL (12.9-16.9) H 01/31/18 05:22 Hct 55.0 % (37.5-50.1) H 01/31/18 05:22 Total Bilirubin 1.0 mg/dL (0.3-1.0) 01/31/18 05:22 AST 54 Units/L (13-39) H 01/31/18 05:22 ALT 36 Units/L (7-52) 01/31/18 05:22 Amylase 1100 Units/L (29-103) H 01/31/18 05:22 Lipase > 1800 Units/L (11-82) H 01/31/18 05:22 - Impressions Impressions Abdomen Ultrasound 01/31/18 09:30 IMPRESSION: 1. Gallbladder distension. Folding of the gallbladder upon itself. Equivocal trace pericholecystic fluid. No cholelithiasis. Positive sonographic Chen's sign. Further evaluation with nuclear medicine hepatobiliary scan is recommended. 2. Shadowing renal calculus at the mid -lower pole junction of the right kidney. No hydronephrosis. 3. Diffuse fatty infiltration of the liver. 4. Limited exam due to patient's large body habitus and bowel gas. The findings were sent to the [facility]iology [facility] at 12:20 pm on 01/31/2018to be communicated to a licensed caregiver. D/ / Heladio Rosen MD / Heladio Rosen MD Interpreting Provider: Heladio Rosen MD Consult Discharge Plan - Plan [facility]errals: [facility] [Primary Care Provider[facility] - 02/10/18 9:45 am (RED TEAM) <Promise Gallo - Last Filed: 01/31/18 18:02> Date of Encounter: 01/31/18 Time of Encounter: 17:30 - Time Spent With Patient Total time spent is greater than 50% in coordination of care (as documented) at patient's floor/unit and/or counseling patient: GI History of Present Illness - Data of Consult Requesting Physician: Ramya Levi MD - Consult Narrative History of present illness: Mr. Phillips is a 62 year old male - Constitutional Vitals: Temp Pulse Resp BP Pulse Ox 98.1 F 92 30 127/71 90 01/31/18 17:30 01/31/18 17:30 01/31/18 17:30 01/31/18 17:30 01/31/18 17:30 Results - Labs CBC & Chem 7: 01/31/18 05:22 01/31/18 16:53 Labs: Last Result Calcium 7.0 mg/dL (8.6-10.3) L 01/31/18 16:53 Triglycerides 131 mg/dL (< 150) 01/31/18 05:22 Entire Visit Hgb 18.5 g/dL (12.9-16.9) H 01/31/18 05:22 Hct 55.0 % (37.5-50.1) H 01/31/18 05:22 Total Bilirubin 1.0 mg/dL (0.3-1.0) 01/31/18 05:22 AST 54 Units/L (13-39) H 01/31/18 05:22 ALT 36 Units/L (7-52) 01/31/18 05:22 Amylase 1100 Units/L (29-103) H 01/31/18 05:22 Lipase > 1800 Units/L (11-82) H 01/31/18 05:22 - Impressions Impressions Abdomen Ultrasound 01/31/18 09:30 IMPRESSION: 1. Gallbladder distension. Folding of the gallbladder upon itself. Equivocal trace pericholecystic fluid. No cholelithiasis. Positive sonographic Chen's sign. Further evaluation with nuclear medicine hepatobiliary scan is recommended. 2. Shadowing renal calculus at the mid -lower pole junction of the right kidney. No hydronephrosis. 3. Diffuse fatty infiltration of the liver. 4. Limited exam due to patient's large body habitus and bowel gas. The findings were sent to the Radiology Results Communication Center at 12:20 pm on 01/31/2018to be communicated to a licensed caregiver. D/ / Heladio Rosen MD / Heladio Rosen MD Interpreting Provider: Heladio Rosen MD - Attending Attestation I have personally performed a face to face evaluation on this patient. I have reviewed and agree with the care plan. History and Exam by me shows: Patient seen. Does has significant lower abdominal pain and abdominal is distended. Assessment: Acute pancreatitis most probably gallstone plus minus alcohol. Recommendation: IV fluid pain control. May need to be started on enteric feeding soon.
--- NOTE | 2018-01-31 17:08 | Electrocardiograph Report ---
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
--- NOTE | 2018-01-31 17:14 | Electrocardiograph Report ---
[place] [id number] Test Date: 2018-01-31 Pat Name: Leland Phillips Department: 113 Room: 08 Gender: M Pharmacy Innovation Assistant: : 1955 Requested By: Ramya Levi Order Number: [id number] Reading MD: Johanna Thomas Measurements Intervals [place] Rate: 120 P: 36 CO: 175 QRS: 1 QRSD: 90 T: 56 QT: 292 QTc: 363 Interpretive Statements SINUS TACHYCARDIA ABNORMAL RHYTHM ECG Electronically Signed On 01-31-2018 17:12:42 EDT by Johanna Thomas
[2018-01-31 17:40] LABS: Potassium 6.5 mEq/L (3.5-5.1)
[2018-01-31] MEDS ORDERED: Sodium Bicarbonate 150 MEQ in D5% in Water 1,000 ML IVC SCH (18:15)
[2018-01-31] MEDS: Albuterol 2.5 MG/3 ML NEBULIZER IH SCH ×2 (19:57→23:09)
[2018-01-31] MEDS: Piperacillin/Tazobactam 3.375 GM in 0.9 % Sodium Chloride Mini Bag 100 ML IVPB SCH (20:17)
[2018-01-31 22:15] LABS: Calcium 7.3 mg/dL (8.6-10.3); Potassium 5.7 mEq/L (3.5-5.1)
[2018-02-01] MEDS: *HR* FentaNYL (PF) 100 MCG/2 ML VIAL IVP PRN ×2 (00:17→08:06)
[2018-02-01] MEDS: Albuterol 2.5 MG/3 ML NEBULIZER IH SCH ×5 (03:45→19:57)
[2018-02-01] MEDS: MORPHINE SUL Oral CONC 10 MG/0.5 ML ORAL.SYG SL PRN (04:06)
[2018-02-01] MEDS: 0.9 % Sodium Chloride 1,000 ML IVC SCH (04:06)
[2018-02-01] MEDS: Piperacillin/Tazobactam 3.375 GM in 0.9 % Sodium Chloride Mini Bag 100 ML IVPB SCH ×2 (04:07→12:48)
[2018-02-01 04:38] LABS: Hematocrit 47.4 % (37.5-50.1); Mean Corpuscular HGB Conc 34.2 g/dL (31.6-35.5); Mean Corpuscular Hemoglobin 33.3 pg (28.0-33.3); Mean Corpuscular Volume 97.3 fL (83.0-100.0); Mean Platelet Volume 11.5 fL (9.4-12.4); Platelet Count 133 K/mcL (140-400); Red Blood Count 4.87 M/mcL (4.19-5.50); Red Cell Distribution Width 15.3 % (11.5-14.5)
[2018-02-01 04:39] LABS: VBG Ionized Calcium 0.81 mmol/L (1.15-1.35)
[2018-02-01 04:40] LABS: Hemoglobin 16.2 g/dL (12.9-16.9)
[2018-02-01 04:59] LABS: Albumin 3.1 g/dL (3.5-5.7); Albumin/Globulin Ratio 1.3 (1.1-2.2); Calcium 6.8 mg/dL (8.6-10.3); Globulin 2.3 g/dL (2.4-3.5); Neutrophils # 21.7 K/mcL (1.6-8.9); Potassium 6.1 mEq/L (3.5-5.1); Total Protein 5.4 g/dL (6.4-8.9)
[2018-02-01 05:00] LABS: Large Platelets Present (Not Present); Platelet Estimate Normal (Normal)
[2018-02-01] MEDS: Folic Acid 1 MG TABLET PO SCH (08:05)
[2018-02-01] MEDS: Vitamin B Complex/Vit C/Vit E 1 EACH TABLET PO SCH (08:05)
[2018-02-01] MEDS: Thiamine (B-1) 100 MG TABLET PO SCH (08:05)
[2018-02-01] MEDS: Loratadine 10 MG TABLET PO SCH (08:05)
[2018-02-01] MEDS: Isosorbide MONOnitrate (24 HR) 60 MG TAB.ER.24H PO SCH (08:05)
[2018-02-01] MEDS: Pantoprazole 40 MG VIAL IVP SCH (08:06)
[2018-02-01] MEDS ORDERED: Sodium Bicarbonate 150 MEQ in D5% in Water 1,000 ML IVC SCH (08:15)
[2018-02-01 09:07] LABS: Calcium 7.1 mg/dL (8.6-10.3); Potassium 6.1 mEq/L (3.5-5.1)
[2018-02-01] MEDS ORDERED: Calcium Gluconate 2,000 MG in D5% in Water 100 ML IVPB ONE (09:23)
[2018-02-01] MEDS: Ringers Solution, Lactated 1,000 ML IVC SCH ×2 (09:35→16:04)
--- NOTE | 2018-02-01 10:07 | Internal Med Progress Note ---
<Michelle Capps - Last Filed: 02/01/18 11:36> Date of Encounter: 02/01/18 Time of Encounter: 10:06 - Assessment and plan (1) Sepsis Current Visit: No Status: Acute Assessment and plan: Pt met sepsis criteria with elevated WBC, LA, Tachycardia and soruce of inf as pancreatitis Pt has been on zosyn and IVF. Today his lactic acid continues to rise as well as his potassium Pt is confused and becoming hypoxic, refusing treatments and wearing his oxygen. On evaluation pt appears to not have appropriate decision making capacity. He is able to answer some questions, but refuses to answer many. Pt is unable to describe consequences of his decision to not seek care. arrived at pt bedside, she states that he has a change in mental capacity and would like everything done. Plan: Transfer to ICU due to worsening respiratory status and possible need for inubation albuterol neb now 10 units IV insulin now attempt to oxygenate with venti mask, NRB or BiPAP if pt will tolerate (he has barely been cooperating with keeping NC in place) Qualifiers: Sepsis type: sepsis due to unspecified organism Qualified Code(s): A41.9 - Sepsis, unspecified organism (2) Acute pancreatitis Current Visit: Yes Status: Acute Assessment and plan: Severe acute pancreatitis, etiology is unclear, likely gallstone as lipids WNL and pt reports only occasional ETOH use. AST elevated, Lipase slightly decreased to 1359 Alk phos, ALT WNL Discussed with GI who think pt may need NG tube with parenteral nutrition tomorrow if he continues to have so much pain CT abd without contrast at the IN showed peripancreatic stranding and evidence of pancreatitis. Possibility for necrotic pancreas, CT with contrast would be helpful, however his renal status does not allow for evaluation at this time. Plan: NPO Hold IV fluids due to ARF GI consulted, appreciate their recommendations Qualifiers: Pancreatitis type: unspecified pancreatitis type Acute pancreatitis complication: unspecified Qualified Code(s): K85.90 - Acute pancreatitis without necrosis or infection, unspecified (3) Lactic acidosis Current Visit: Yes Status: Acute Assessment and plan: Lactic acid worsenin.5 this morning Pt has increased confusion. Plan: Continue to monitor labs and clinical picture Consider further evaluation if able. (4) Cholelithiases Current Visit: Yes Status: Acute Qualifiers: Cholecystitis presence: without cholecystitis Biliary obstruction: without biliary obstruction Qualified Code(s): K80.20 - Calculus of gallbladder without cholecystitis without obstruction (5) YEFRI (acute kidney injury) Current Visit: Yes Status: Acute Assessment and plan: Due to dehydration / prerenal with sepsis Pt has poor UOP despite adequate hydration. Pt refusing renal US. Nephrology would like to insert HD line and potentially start HD in the setting of hyperkalemia, lactic acidosis and rising SCr. Nephro has stopped IVF for now secondary to worsening respiratory status. (6) Hyperkalemia Current Visit: Yes Status: Acute Assessment and plan: Insulin and Calcium Gluconate given 12/31 Reviewed EKG showed sinus tachcyardia, peak T wave noticed 01/01 K 6.1 Likely will need HD in setting of YEFRI and worsening hyperkalemia Plan: 10 units IV insulin with 1 amp D50 now. Continue tele Serial K checks (7) COPD (chronic obstructive pulmonary disease) Current Visit: No Status: Chronic Qualifiers: COPD type: chronic bronchitis Chronic bronchitis type: simple Qualified Code(s): J41.0 - Simple chronic bronchitis (8) Acute respiratory failure Current Visit: Yes Status: Acute Assessment and plan: ARF with hypoxia, increased work of breathing. pt refusing to wear oxygen. Plan: Continue to attempt venti mask, NRB, bipap Plan to transfer to ICU when beds are available Qualifiers: Respiratory failure complication: hypoxia Qualified Code(s): J96.01 - Acute respiratory failure with hypoxia - Time Spent With Patient Total time spent is greater than 50% in coordination of care (as documented) at patient's floor/unit and/or counseling patient: - Subjective Interval history: Pt seen and examined. Pt having worsening respiratory distress, stating it is difficult to breathe. He is only wearing oxygen via NC and not keeping it on. Declined renal US. Requesting water. Nursing staff and report that his cognition and affect have drastically changed from yesterday. - Constitutional Vitals: Temp Pulse Resp BP Pulse Ox 98.0 F 111 18 120/56 88 02/01/18 07:51 02/01/18 07:51 02/01/18 07:54 02/01/18 07:51 02/01/18 07:54 General appearance: Present: A&O X 1, obese, severe distress. Absent: answers questions appropriately - Respiratory Respiratory exam: Present: accessory muscle use, decreased breath sounds, rales , respiratory distress, wheezes - Cardiovascular Cardiovascular exam: Present: tachycardia - GI/Abdominal GI/Abdominal exam: Present: diminished bowel sounds, distended, tenderness - Extremities Exam Extremities exam: Present: mottling. Absent: normal capillary refill - Neurological Exam Neurological exam: Present: altered - Expanded Neurological Exam Neurological exam expanded: Present: inattentive Patient oriented to: Present: person Speech: Present: fluid speech - Psychiatric Psychiatric exam: Present: agitated, anxious - Expanded Psychiatric Exam Focused psych exam: Present: restlessness - Skin Skin exam: Present: diaphoretic, mottled Internal Medicine: Result - Labs CBC & Chem 7: 02/01/18 04:14 02/01/18 08:33 Labs: Short CBC 02/01/18 Range/Units 04:14 WBC 24.6 H (4.3-11.1) K/mcL Hgb 16.2 D (12.9-16.9) g/dL Hct 47.4 (37.5-50.1) % Plt Count 133 L (140-400) K/mcL Neutrophils # 21.7 H (1.6-8.9) K/mcL BMP 01/31/18 01/31/18 01/31/18 11:08 16:53 21:44 Sodium 138 136 137 Potassium 5.3 H 6.5 H* 5.7 H Chloride 110 H 111 H 112 H Carbon Dioxide 13 L 14 L 14 L BUN 36 H 43 H 48 H Creatinine 2.48 H 2.83 H 2.95 H Glucose 230 H 199 H 162 H Calcium 7.5 L 7.0 L 7.3 L 02/01/18 02/01/18 04:14 08:33 Sodium 138 138 Potassium 6.1 H 6.1 H Chloride 112 H 109 H Carbon Dioxide 13 L 15 L BUN 54 H 56 H Creatinine 2.87 H 2.77 H Glucose 189 H 203 H Calcium 6.8 L 7.1 L Liver Function 02/01/18 Range/Units 04:14 Total Bilirubin 2.0 H (0.3-1.0) mg/dL AST 95 H (13-39) Units/L ALT 37 (7-52) Units/L Alkaline Phosphatase 54 (34-104) Units/L Albumin 3.1 L (3.5-5.7) g/dL Urine 01/31/18 Range/Units 11:30 Urine Color Dark Yellow (Yellow) Urine Clarity Turbid A (Clear) Urine pH 5.0 (5.0-8.0) pH Units Ur Specific [place] 1.025 (1.010-1.025) Urine Protein 30 H (Neg-Trace) mg/dL Urine Glucose (UA) Normal (Normal) mg/dL - Impressions Impressions Abdomen Ultrasound 01/31/18 09:30 IMPRESSION: 1. Gallbladder distension. Folding of the gallbladder upon itself. Equivocal trace pericholecystic fluid. No cholelithiasis. Positive sonographic Chen's sign. Further evaluation with nuclear medicine hepatobiliary scan is recommended. 2. Shadowing renal calculus at the mid -lower pole junction of the right kidney. No hydronephrosis. 3. Diffuse fatty infiltration of the liver. 4. Limited exam due to patient's large body habitus and bowel gas. The findings were sent to the Radiology Results Communication [facility] at 12:20 pm on 01/31/2018to be communicated to a licensed caregiver. D/ / Heladio Rosen MD / Heladio Rosen MD Interpreting Provider: Heladio Rosen MD - VTE Documentation of Mechanical Device: Intermittent pneumatic compression device Consult Discharge Plan - Plan [facility]errals[facility] Care Provider[facility] - 02/10/18 9:45 am (RED TEAM) <Maureen Riggs - Last Filed: 02/01/18 18:11> Date of Encounter: 02/01/18 - Assessment and plan (1) COPD (chronic obstructive pulmonary disease) Current Visit: No Status: Chronic Qualifiers: COPD type: chronic bronchitis Chronic bronchitis type: simple Qualified Code(s): J41.0 - Simple chronic bronchitis (2) Sepsis Current Visit: Yes Status: Acute Qualifiers: Sepsis type: sepsis due to unspecified organism Qualified Code(s): A41.9 - Sepsis, unspecified organism (3) Acute pancreatitis Current Visit: Yes Status: Acute Qualifiers: Pancreatitis type: unspecified pancreatitis type Acute pancreatitis complication: unspecified Qualified Code(s): K85.90 - Acute pancreatitis without necrosis or infection, unspecified (4) Lactic acidosis Current Visit: Yes Status: Acute (5) YEFRI (acute kidney injury) Current Visit: Yes Status: Acute (6) Hyperkalemia Current Visit: Yes Status: Acute (7) Cholelithiases Current Visit: Yes Status: Acute Qualifiers: Cholecystitis presence: without cholecystitis Biliary obstruction: without biliary obstruction Qualified Code(s): K80.20 - Calculus of gallbladder without cholecystitis without obstruction (8) Acute respiratory failure Current Visit: Yes Status: Acute Qualifiers: Respiratory failure complication: hypoxia Qualified Code(s): J96.01 - Acute respiratory failure with hypoxia - Time Spent With Patient Total time spent is greater than 50% in coordination of care (as documented) at patient's floor/unit and/or counseling patient: - Constitutional Vitals: Temp Pulse Resp BP Pulse Ox 99.6 F 116 22 98/54 94 02/01/18 11:58 02/01/18 16:07 02/01/18 17:56 02/01/18 16:07 02/01/18 17:56 Internal Medicine: Result - Labs CBC & Chem 7: 02/01/18 04:14 02/01/18 15:50 Labs: Short CBC 02/01/18 Range/Units 04:14 WBC 24.6 H (4.3-11.1) K/mcL Hgb 16.2 D (12.9-16.9) g/dL Hct 47.4 (37.5-50.1) % Plt Count 133 L (140-400) K/mcL Neutrophils # 21.7 H (1.6-8.9) K/mcL BMP 01/31/18 02/01/18 02/01/18 21:44 04:14 08:33 Sodium 137 138 138 Potassium 5.7 H 6.1 H 6.1 H Chloride 112 H 112 H 109 H Carbon Dioxide 14 L 13 L 15 L BUN 48 H 54 H 56 H Creatinine 2.95 H 2.87 H 2.77 H Glucose 162 H 189 H 203 H Calcium 7.3 L 6.8 L 7.1 L 02/01/18 15:50 Sodium 141 Potassium 6.1 H Chloride 111 H Carbon Dioxide 20 L BUN 66 H Creatinine 3.33 H Glucose 186 H Calcium 6.6 L Cardiac Enzymes 02/01/18 Range/Units 15:50 Troponin I 0.09 H* (< 0.04) ng/mL Liver Function 02/01/18 Range/Units 04:14 Total Bilirubin 2.0 H (0.3-1.0) mg/dL AST 95 H (13-39) Units/L ALT 37 (7-52) Units/L Alkaline Phosphatase 54 (34-104) Units/L Albumin 3.1 L (3.5-5.7) g/dL - ABG Interpretation ABG results: ABG ABG pH 7.22 pH Units (7.32-7.45) L 02/01/18 17:06 ABG pCO2 51 mmHg (35-45) H 02/01/18 17:06 ABG pO2 84 mmHg (85-104) L 02/01/18 17:06 ABG O2 Saturation 94 % (95-98) L 02/01/18 17:06 PT/INR, D-dimer PT 15.9 Seconds (9.4-12.1) H 02/01/18 11:39 - Impressions Impressions Chest X-Ray 02/01/18 13:41 IMPRESSION: Findings most compatible with acute congestive heart failure with asymmetric parenchymal edema and pleural effusion - right greater than left. However, possibility of superimposed pneumonia right lower lobe cannot be excluded by this exam. D/ / Min Agosto MD / Min Agosto MD Interpreting Provider: Min Agosto MD Chest X-Ray 02/01/18 14:39 IMPRESSION: 1. Endotracheal tube approximately 4.8 cm above the indra. 2. Enlarged cardiac silhouette with mild interstitial edema and a right pleural effusion. 3. Right basilar airspace opacities compatible with atelectasis versus pneumonia. D/ / Josh Mullins MD / Josh Mullins MD Interpreting Provider: Josh Mullins MD X-Ray 02/01/18 14:39 IMPRESSION: Enteric tube in the stomach as above. No evidence of bowel obstruction. D/ / Chencho Farris MD / Chencho Farris MD Interpreting Provider: Chencho Farris MD X-Ray 02/01/18 15:18 IMPRESSION: 1. Right-sided central venous catheter tips overlie the IVC. 2. Right common femoral arterial line tip overlies the external iliac artery. D/ / Pa Giordano MD / Pa Giordano MD Interpreting Provider: Pa Giordano MD - Attending Attestation I examined this patient and my medical decision-making was reviewed with the Resident Physician. I agree with the documented findings, disposition and treatment plan as described except to the extent set forth below. 86 year old presented with acute pancreatitis and sepsis. He is also developing acute respiratory failure, acute kidney failure, and worsening lactic acidosis. Patient was having worsening respiratory distress today and yesterday. I spoke with nurse who took care of patient today and yesterday. She noted he is about the same. Nephrology preferred to have dialysis for patient but he was refusing all treatment offered by us; including supplemental oxygen, aerosol therapy, dialysis. While patient was unstable, we discussed with patient about calling family memebers. He told us not to do so. However, he did not seem to have decision making capacity at that time. I called daughter but also his arrived at bedside. They confirmed to me that he would like all measures taken. With that being said he was transferred to ICU, and plan is for temp dialysis cath to be placed at some time soon as well.
--- NOTE | 2018-02-01 10:12 | Nephrology Consult Note ---
<CathyCandace bishop Germania - Last Filed: 02/01/18 10:03> Date of Encounter: 02/01/18 Time of Encounter: 10:03 Assessment and Plan (1) YEFRI (acute kidney injury) Status: Acute Scr 2.77 and GFR is 23 with most recent labs. Family at bedside and would like everything done for this patient. Patient was refusing all care, but he is very confused. IR consult placed to place temp. HD line. Continue to avoid nephrotoxins and renal dose all medications. Serum and urine studies ordered/pending. (2) Abdominal pain Status: Acute Per primary team. Qualifiers: Abdominal location: generalized Qualified Code(s): R10.84 - Generalized abdominal pain (3) Acute pancreatitis Status: Acute Per primary team. Qualifiers: Pancreatitis type: unspecified pancreatitis type Acute pancreatitis complication: unspecified Qualified Code(s): K85.90 - Acute pancreatitis without necrosis or infection, unspecified (4) Hyperkalemia Status: Acute Kayexalate given this am. Temp. HD line ordered for HD today. (5) Lactic acidosis Status: Acute HCO3 gtt infusing, was stopped due to respiratory status. History of Present Illness - Reason for Consult Consult date: 02/01/18 Acute Kidney Injury - Chief Complaint abdominal pain - History of Present Illness Mr. Phillips is a 62 year old Male who presented to ED with abdominal pain was diagnosed with actue pancreatitis. PMH: COPD, coronary artery disease, diabetes & hypertension. No known kidney issues in the past, does not see a test clerk. Unable to report if he has any family history of kidney disease. Initial labs did show normal kidney function. Today Scr is 2.77 and GFR is 23. Lactic Acid is 4.5. It appears that Mr. Phillips is in acute kidney injury and serum and urine studies have been ordered. Upon examination he appears to be in pain and uncomfortable. When asked if he would be willing to do short term hemodialysis he declines but he seems confused. I explained that he is in kidney injury and he could get to kidney failure. He is still making some urine. Past Med Surg Social Fam HX - Past Medical History Medical history: COPD, coronary artery disease, diabetes, hypertension, other Additional medical history: Pancreatitis, Diverticulosis, DDD, Hernia, GERD Psychiatric history: depression - Past Surgical History Surgical History: appendectomy, other (Open repair of extensor tendon laceration , left long finger) Additional surgical history: L4 L5 back surgery - Social History Smoking Status: Current every day smoker Packs per day: 1/2 Smokeless Tobacco Status: No Alcohol use: rarely Drug use: none - Family History Mother Living Status: Hx Family Cardiac Disorders: Yes (Stroke) Hx Family Cancer: Yes (Breast Ca.) Brother Living Status: Hx Family Cancer: Yes (Throat Ca.) Medications and Allergies Aspirin 325 mg PO DAILY 01/30/18 [History] Atenolol [Tenormin] 25 mg PO DAILY 01/30/18 [History] Ibuprofen [Motrin] 600 mg PO Q8HR PRN 01/30/18 [History] Isosorbide MONOnitrate (24 HR) [Imdur] 60 mg PO DAILY 01/30/18 [History] Loratadine [Allergy Relief] 10 mg PO DAILY 01/30/18 [History] Methocarbamol [Robaxin-750] 750 mg PO Q8H PRN 01/30/18 [History] Multivitamin [One Daily Multivitamin] 1 tab PO DAILY 01/30/18 [History] Omeprazole [PriLOSEC] 20 mg PO DAILY 01/30/18 [History] Simvastatin [Zocor] 10 mg PO HS 01/30/18 [History] 3 Allergy/AdvReac Type Severity Reaction Status Date / Time codeine AdvReac Anxiety Verified 01/30/18 15:57 tramadol AdvReac Anxiety Verified 01/30/18 15:57 Review of Systems Constitutional: no anorexia, no chills, no fatigue, no fever(s) Cardiovascular: no chest pain Gastrointestinal: no diarrhea, no nausea, no vomiting Exam - Vital Signs Vital signs: Initial Vital Signs Temp Pulse Resp BP Pulse Ox 98.4 F 85 20 184/103 94 01/30/18 12:59 01/30/18 12:59 01/30/18 12:59 01/30/18 12:59 01/30/18 12:59 Vital Signs - Last 8 Hours Temp Pulse Resp BP Pulse Ox 02/01/18 07:54 18 88 02/01/18 07:51 98.0 F 111 20 120/56 90 02/01/18 04:31 109 02/01/18 03:48 97.7 F 108 20 122/65 94 06/05/18 03:47 20 95 Intake and Output 01/31/18 02/01/18 02/01/18 23:59 07:59 15:59 Intake Total 1000 / 1000 1200 / 1200 Output Total 50 / 50 500 / 500 Balance 950 / 950 700 / 700 Intake: IV Fluids 1000 / 1000 1200 / 1200 0.9 % Sodium Chloride 1,000 ML 1000 / 1000 1100 / 1100 @ 100 mls/hr IVC .Q10H RAMESH Rx#: [id number] Zosyn 3.375 GM In 0.9 % Sodium 100 / 100 Chloride (Mini-Bag +) 100 ML @ 25 mls/hr IVPB Q8H RAMESH Rx#: [id number] Oral 0 / 0 0 / 0 Output: Catheter 50 / 50 500 / 500 Other: Meal NPO Percent of Meal Consumed 0% Weight 122.7 kg Blood Glucose* 154 Patient Weight 02/01/18 23:59 Weight 122.7 kg - General Appearance General appearance: obese, chronically ill EENT: ATNC, hearing intact, vision intact Respiratory: clear Cardiology: no edema, normal S1 Integumentary: no rash, warm and dry Neurologic: alert and oriented x3 Psychiatric: mood/affect appropriate, cooperative Results - Lab Results 02/01/18 04:14 02/01/18 08:33 Most recent lab results Calcium 7.1 mg/dL (8.6-10.3) L 02/01/18 08:33 Magnesium 1.7 mg/dL (1.6-2.6) 02/01/18 04:14 Consult Discharge Plan - Plan [facility]errals: [facility]Primary Care Provider[facility] - 02/10/18 9:45 am (RED TEAM) <Zunilda Carrion - Last Filed: 02/07/18 07:10> Date of Encounter: 02/01/18 Exam - Vital Signs Vital signs: Initial Vital Signs Temp Pulse Resp BP Pulse Ox 98.4 F 85 20 184/103 94 01/30/18 12:59 01/30/18 12:59 01/30/18 12:59 01/30/18 12:59 01/30/18 12:59 Results - Lab Results 02/01/18 04:14 02/01/18 15:50 Most recent lab results ABG pH 7.22 pH Units (7.32-7.45) L 02/01/18 17:06 ABG pCO2 51 mmHg (35-45) H 02/01/18 17:06 ABG pO2 84 mmHg (85-104) L 02/01/18 17:06 ABG HCO3 21 mEq/L (21-27) 02/01/18 17:06 ABG O2 Saturation 94 % (95-98) L 02/01/18 17:06 Calcium 6.6 mg/dL (8.6-10.3) L 02/01/18 15:50 Phosphorus 2.8 mg/dL (2.7-4.5) 02/01/18 09:53 Magnesium 1.7 mg/dL (1.6-2.6) 02/01/18 04:14 - Attending Attestation I examined this patient and my medical decision-making was reviewed with the Resident Physician. I agree with the documented findings, disposition and treatment plan as described except to the extent set forth below. Pt seen and examined this am after receiving the non-urgent consult overnight for YEFRI in the setting of acute pancreatitis. When seen, pt was refusing all interventions proposed and refused to let us contact family. Primary team called to the scene to help with goals of care but suspect if pt is agreeable that he is grave danger from his pancreatitis given worsening abd pain, worsening renal fxn with oliguria despite aggresive fluid replacement overnight and rising lactic acid. Would like to proceed with [employer] if pt or family willing today.
[2018-02-01 10:54] LABS: Phosphorous 2.8 mg/dL (2.7-4.5); Uric Acid 10.4 mg/dL (2.3-7.6)
[2018-02-01] MEDS ORDERED: Insulin Human Regular 10 UNIT in 0.9 % Sodium Chloride 10 ML IV ONE (10:58)
[2018-02-01] MEDS ORDERED: *HR* Dextrose 50 % in Water (Syg) 50 ML SYRINGE IVP ONE (10:59)
--- NOTE | 2018-02-01 11:08 | Pulmonology Consult Note ---
<Joss Morfin - Last Filed: 02/01/18 11:32> Date of Encounter: 02/01/18 Time of Encounter: 11:00 Assessment and Plan (1) Acute pancreatitis Current Visit: Yes Status: Acute 1. Suspected primary cause of patient's sepsis, lactic acidosis, acute renal failure 2. Outside hospital CT did show pancreatitis, but was a noncontrasted study with no signs of necrosis. Qualifiers: Pancreatitis type: unspecified pancreatitis type Acute pancreatitis complication: unspecified Qualified Code(s): K85.90 - Acute pancreatitis without necrosis or infection, unspecified (2) YEFRI (acute kidney injury) Current Visit: Yes Status: Acute 1. Likely secondary to sepsis from pancreatitis, nephrology following as well and recommending hemodialysis 2. Elevated lactic acid, trending up (3) Hyperkalemia Current Visit: Yes Status: Acute 1. Trending up and likely related to his acute kidney injury. IR has been consult for hemodialysis catheter placement and the patient will be transferred to ICU 2. Would recommend getting an EKG and if any changes, giving 1 g of calcium gluconate. 3. Giving 10 units of insulin with an amp of D50. 4. Patient is also hypoxic, persistently wheezing. Would recommend continuous albuterol treatment (10-15mg), which would help with both his hyperkalemia, hypoxia, COPD. 5. Patient received Kayexalate previously, but is suspected to have slow transport due to his pancreatitis and distended abdomen, has not had any bowel movement as of yet 6. Would also consider 40 mg of IV Lasix for his hyperkalemia (4) Lactic acidosis Current Visit: Yes Status: Acute 1. Is trending up secondary to pancreatitis, sepsis, tissue hypoperfusion. 2. IVF resuscitation. Recheck in 2 hours (5) Sepsis Current Visit: No Status: Acute 1. 2/2 pancreatitis 2. treatments as above Qualifiers: Sepsis type: sepsis due to unspecified organism Qualified Code(s): A41.9 - Sepsis, unspecified organism History of Present Illness Consult date: 02/01/18 Requesting physician: Maureen Riggs Reason for consult: dyspnea Chief complaint: pancreatitis, AMS, dyspnea History of present illness: Patient was admitted to the hospital as a transfer from the [place] for pancreatitis. During his hospital stay, he has developed renal failure, altered mental status and dyspnea. We were consulted for his respiratory decline. According to family, the patient is not at his baseline at all. He is able to answer simple questions and states that he feels short of breath and denies any chest pain, but family states he is quite confused and is unable to elaborate any further on his history. Past Med Surg Social Fam HX - Past Medical History Medical history: COPD, coronary artery disease, diabetes, hypertension, other Additional medical history: Pancreatitis, Diverticulosis, DDD, Hernia, GERD Psychiatric history: depression - Past Surgical History Surgical History: appendectomy, other (Open repair of extensor tendon laceration , left long finger) Additional surgical history: L4 L5 back surgery - Social History Smoking Status: Current every day smoker Packs per day: 1/2 Smokeless Tobacco Status: No Alcohol use: rarely Drug use: none - Family History Mother Living Status: Hx Family Cardiac Disorders: Yes (Stroke) Hx Family Cancer: Yes (Breast Ca.) Brother Living Status: Hx Family Cancer: Yes (Throat Ca.) Medications and Allergies Aspirin 325 mg PO DAILY 01/30/18 [History] Atenolol [Tenormin] 25 mg PO DAILY 01/30/18 [History] Ibuprofen [Motrin] 600 mg PO Q8HR PRN 01/30/18 [History] Isosorbide MONOnitrate (24 HR) [Imdur] 60 mg PO DAILY 01/30/18 [History] Loratadine [Allergy Relief] 10 mg PO DAILY 01/30/18 [History] Methocarbamol [Robaxin-750] 750 mg PO Q8H PRN 01/30/18 [History] Multivitamin [One Daily Multivitamin] 1 tab PO DAILY 01/30/18 [History] Omeprazole [PriLOSEC] 20 mg PO DAILY 01/30/18 [History] Simvastatin [Zocor] 10 mg PO HS 01/30/18 [History] 3 Allergy/AdvReac Type Severity Reaction Status Date / Time codeine AdvReac Anxiety Verified 01/30/18 15:57 tramadol AdvReac Anxiety Verified 01/30/18 15:57 All Systems: The remainder of the systems were reviewed and are negative Review of Systems: As reviewed in the HPI. All other systems reviewed are negative or normal. Physical Examination Vital Signs: Vital Signs, Last 4 Hours Temp Pulse Resp BP Pulse Ox 02/01/18 07:54 18 88 02/01/18 07:51 98.0 F 111 20 120/56 90 General appearance: appears uncomfortable, other (resp distress) Eyes: nonicteric ENT: oropharynx moist, oropharynx pale Neck: supple Effort: very labored Inspection: normal Auscultation: bilateral: diminished breath sounds, wheezes, rales Cardiovascular: regular rate and rhythm Gastrointestinal: normoactive bowel sounds, soft, tender, other (distended) Integumentary: normal Extremities: no cyanosis, no edema, no clubbing Musculoskeletal: no deformities, ROM normal pupils equal and round, unable to assess due to mental status anxious Results - Laboratory Findings CBC and BMP: 02/01/18 04:14 02/01/18 08:33 Abnormal lab findings: Abnormal lab results WBC 24.6 K/mcL (4.3-11.1) H 02/01/18 04:14 RDW 15.3 % (11.5-14.5) H 02/01/18 04:14 Plt Count 133 K/mcL (140-400) L 02/01/18 04:14 Band Neutrophils % 8.0 % (0-4) H 02/01/18 04:14 Neutrophils # 21.7 K/mcL (1.6-8.9) H 02/01/18 04:14 Monocytes # 2.0 K/mcL (0.0-1.3) H 02/01/18 04:14 Reactive Lymphocytes Present (Not Present) A 01/31/18 05:22 Smudge Cells Present (Not Present) A 01/31/18 05:22 Large Platelets Present (Not Present) A 02/01/18 04:14 Macrocytosis Present (Not Present) A 01/31/18 05:22 Potassium 6.1 mEq/L (3.5-5.1) H 02/01/18 08:33 Chloride 109 mEq/L (98-107) H 02/01/18 08:33 Carbon Dioxide 15 mEq/L (23-29) L 02/01/18 08:33 BUN 56 mg/dL (8-23) H 02/01/18 08:33 Creatinine 2.77 mg/dL (0.70-1.30) H 02/01/18 08:33 Est GFR ( Amer) 28 (> 60) L 02/01/18 08:33 Est GFR (Non-Af Amer) 23 (> 60) L 02/01/18 08:33 Glucose 203 mg/dL (70-105) H 02/01/18 08:33 POC Glucose 154 mg/dL (70-99) H 01/31/18 23:52 Calculated Osmolality 307 (280-300) H 02/01/18 08:33 Lactic Acid 4.5 mmol/L (0.5-2.2) H* 02/01/18 08:33 Uric Acid 10.4 mg/dL (2.3-7.6) H 02/01/18 09:53 Calcium 7.1 mg/dL (8.6-10.3) L 02/01/18 08:33 Venous Ioniz Calcium 0.81 mmol/L (1.15-1.35) L 02/01/18 04:37 Total Bilirubin 2.0 mg/dL (0.3-1.0) H 02/01/18 04:14 AST 95 Units/L (13-39) H 02/01/18 04:14 Creatine Kinase 1036 Units/L (30-223) H 02/01/18 09:53 Serum Total Protein 5.4 g/dL (6.4-8.9) L 02/01/18 04:14 Albumin 3.1 g/dL (3.5-5.7) L 02/01/18 04:14 Globulin 2.3 g/dL (2.4-3.5) L 02/01/18 04:14 HDL Cholesterol 28 mg/dL (40-59) L 01/31/18 05:22 Amylase 809 Units/L (29-103) H 02/01/18 04:14 Lipase 1359 Units/L (11-82) H 02/01/18 04:14 Urine Clarity Turbid (Clear) A 01/31/18 11:30 Urine Protein 30 mg/dL (Neg-Trace) H 01/31/18 11:30 Urine Ketones 15 mg/dL (Negative) H 01/31/18 11:30 Urine Blood Trace (Negative) H 01/31/18 11:30 Urine Bilirubin Small (Negative) H 01/31/18 11:30 Ur Leukocyte Esterase Trace (Negative) H 01/31/18 11:30 Urine Microscopic WBC 5-15 per hpf (0-3) H 01/31/18 11:30 Ur Squamous Epith Cells Many per lpf (None-Few) H 01/31/18 11:30 Granular Casts Few per lpf (None Seen) H 01/31/18 11:30 Ur Culture Indicated? NO. (NO) A 01/31/18 11:30 - Clinical Findings Intake & Output: Intake & Output 01/31/18 02/01/18 02/01/18 23:59 07:59 15:59 Intake Total 1000 / 1000 1200 / 1200 Output Total 50 / 50 500 / 500 Balance 950 / 950 700 / 700 Weight 122.7 kg Consult Discharge Plan - Plan [facility] Provider[facility] - 02/10/18 9:45 am (RED TEAM) <Faith Delgado - Last Filed: 02/01/18 13:55> Date of Encounter: 02/01/18 All Systems: The remainder of the systems were reviewed and are negative Physical Examination Vital Signs: Vital Signs, Last 4 Hours Temp Pulse Resp BP Pulse Ox 02/01/18 11:58 99.6 F 125 33 95/72 98 02/01/18 11:40 34 120/56 94 Results - Laboratory Findings CBC and BMP: 02/01/18 04:14 02/01/18 08:33 PT/INR, D-dimer PT 15.9 Seconds (9.4-12.1) H 02/01/18 11:39 Abnormal lab findings: Abnormal lab results WBC 24.6 K/mcL (4.3-11.1) H 02/01/18 04:14 RDW 15.3 % (11.5-14.5) H 02/01/18 04:14 Plt Count 133 K/mcL (140-400) L 02/01/18 04:14 Band Neutrophils % 8.0 % (0-4) H 02/01/18 04:14 Neutrophils # 21.7 K/mcL (1.6-8.9) H 02/01/18 04:14 Monocytes # 2.0 K/mcL (0.0-1.3) H 02/01/18 04:14 Reactive Lymphocytes Present (Not Present) A 01/31/18 05:22 Smudge Cells Present (Not Present) A 01/31/18 05:22 Large Platelets Present (Not Present) A 02/01/18 04:14 Macrocytosis Present (Not Present) A 01/31/18 05:22 PT 15.9 Seconds (9.4-12.1) H 02/01/18 11:39 Potassium 6.1 mEq/L (3.5-5.1) H 02/01/18 08:33 Chloride 109 mEq/L (98-107) H 02/01/18 08:33 Carbon Dioxide 15 mEq/L (23-29) L 02/01/18 08:33 BUN 56 mg/dL (8-23) H 02/01/18 08:33 Creatinine 2.77 mg/dL (0.70-1.30) H 02/01/18 08:33 Est GFR ( Amer) 28 (> 60) L 02/01/18 08:33 Est GFR (Non-Af Amer) 23 (> 60) L 02/01/18 08:33 Glucose 203 mg/dL (70-105) H 02/01/18 08:33 POC Glucose 154 mg/dL (70-99) H 01/31/18 23:52 Calculated Osmolality 307 (280-300) H 02/01/18 08:33 Lactic Acid 4.5 mmol/L (0.5-2.2) H* 02/01/18 08:33 Uric Acid 10.4 mg/dL (2.3-7.6) H 02/01/18 09:53 Calcium 7.1 mg/dL (8.6-10.3) L 02/01/18 08:33 Venous Ioniz Calcium 0.81 mmol/L (1.15-1.35) L 02/01/18 04:37 Total Bilirubin 2.0 mg/dL (0.3-1.0) H 02/01/18 04:14 AST 95 Units/L (13-39) H 02/01/18 04:14 Creatine Kinase 1036 Units/L (30-223) H 02/01/18 09:53 Serum Total Protein 5.4 g/dL (6.4-8.9) L 02/01/18 04:14 Albumin 3.1 g/dL (3.5-5.7) L 02/01/18 04:14 Globulin 2.3 g/dL (2.4-3.5) L 02/01/18 04:14 HDL Cholesterol 28 mg/dL (40-59) L 01/31/18 05:22 Amylase 809 Units/L (29-103) H 02/01/18 04:14 Lipase 1359 Units/L (11-82) H 02/01/18 04:14 Urine Clarity Turbid (Clear) A 01/31/18 11:30 Urine Protein 30 mg/dL (Neg-Trace) H 01/31/18 11:30 Urine Ketones 15 mg/dL (Negative) H 01/31/18 11:30 Urine Blood Trace (Negative) H 01/31/18 11:30 Urine Bilirubin Small (Negative) H 01/31/18 11:30 Ur Leukocyte Esterase Trace (Negative) H 01/31/18 11:30 Urine Microscopic WBC 5-15 per hpf (0-3) H 01/31/18 11:30 Ur Squamous Epith Cells Many per lpf (None-Few) H 01/31/18 11:30 Granular Casts Few per lpf (None Seen) H 01/31/18 11:30 Ur Culture Indicated? NO. (NO) A 01/31/18 11:30 - Clinical Findings Intake & Output: Intake & Output 01/31/18 02/01/18 02/01/18 23:59 07:59 15:59 Intake Total 1000 / 1000 1200 / 1200 100 / 100 Output Total 50 / 50 500 / 500 Balance 950 / 950 700 / 700 100 / 100 Weight 122.7 kg - Attending Attestation I examined this patient and my medical decision-making was reviewed with the Resident Physician. I agree with the documented findings, disposition and treatment plan as described except to the extent set forth below. Patient seen and examined. I was called by the resident to evaluate patient in 2 N because his condition is worsen and he was evaluated with the resident. Labs, radiology, chart personally reviewed. 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 Pulmonary: Acceptable oxygenation and ventilation at this time, however concern he could be developing ARDS from his acute pancreatitis and NIV may not be the best option for him due to stomach distension, however will monitor for now. I suspect he could worsen and end up on invasive mechanical ventilation. Cardiovascular: fairly stable now, however I expect it could worsen and he needs to be treated for hyperkalemia. GI: Nutrition per dietary and GI prophylaxis per routine. GI has been consulted. Monitor Nicholas criteria. Reviewed report from outside hospital. Because of his renal function, I'll not recommend IV contrast to check for necrosis, will consider US. Heme: DVT prophylaxis per routine ID: Continue antibiotics and plan to de-escalation Renal; urine out put and renal funtion reviewed. Treat hyperkalemia. Patient to have HD catheter and to be treated. Endorcine: blood glucose is monitored Lines: all lines checked and no evidence of infections Skin: skin care to prevent pressure ulcers per nursing routine care I expect his condition will worsen and trying to move to ICU as soon as possible and ICU charge nurse is [place]. Discussed with family at bed side. I spent 35 min of Critical Care time with this patient. It involved decision making of high complexity to assess, manipulate, and support vital organ system failure and/or to prevent further life threatening deterioration of the patient' s condition. The time involved in the performance of separately reportable procedures was not counted toward critical care time.
--- NOTE | 2018-02-01 11:49 | Gastroenterology Progress Note ---
Date of Encounter: 02/01/18 Time of Encounter: 10:15 - Assessment and plan (1) Pancreatitis Current Visit: No Status: Acute Assessment and plan: RUQ US shows gallbladder distension, folding of the gallbladder upon itself, equivocal trace pericholecystic fluid, no cholelithiasis. Check IgG4 and LUIS A. Ionized calcium 0.81. Triglycerides normal at 131. Lipase inproved from >1800 to 1359. Continue IV fluids, anti-emetics and pain control. Consider inserting Dobhoff tube for feeding. Keep patient NPO for now. Qualifiers: Qualified Code(s): K85.90 - Acute pancreatitis without necrosis or infection , unspecified (2) Sepsis Current Visit: No Status: Acute Assessment and plan: Management per primary team. Qualifiers: Qualified Code(s): A41.9 - Sepsis, unspecified organism - Time Spent With Patient Total time spent is greater than 50% in coordination of care (as documented) at patient's floor/unit and/or counseling patient: - Subjective Interval history: Pt has become confused and is refusing treatments. He continues to have abdominal pain. - Constitutional Vitals: Temp Pulse Resp BP Pulse Ox 98.0 F 111 34 120/56 94 02/01/18 07:51 02/01/18 07:51 02/01/18 11:40 02/01/18 11:40 02/01/18 11:40 General appearance: Present: A&O X 1, mild distress Exam: appears uncomfortable - Head Head exam: Present: atraumatic, normocephalic - Eye Eye exam: Present: normal appearance, sclera anicteric - ENT ENT exam: Present: mucous membranes dry - Neck Neck exam general surgery: Present: normal inspection, trachea midline - Respiratory Respiratory exam: Present: decreased breath sounds. Absent: wheezes - Cardiovascular Cardiovascular exam: Present: RRR, +S1, +S2 - GI/Abdominal GI/Abdominal exam: Present: guarding, soft, tenderness (epigastric), no peritoneal signs. Absent: distended, firm - Rectal Rectal exam: Present: deferred - Extremities Exam Extremities exam: Present: warm - Neurological Exam Neurological exam: Present: no focal deficits - Psychiatric Psychiatric exam: Present: normal affect, normal mood - Skin Skin exam: Present: dry, intact, normal color, warm Results - Labs CBC & Chem 7: 02/01/18 04:14 02/01/18 08:33 Labs: Last Result Calcium 7.1 mg/dL (8.6-10.3) L 02/01/18 08:33 Triglycerides 131 mg/dL (< 150) 01/31/18 05:22 Entire Visit Hgb 16.2 g/dL (12.9-16.9) D 02/01/18 04:14 Hct 47.4 % (37.5-50.1) 02/01/18 04:14 Total Bilirubin 2.0 mg/dL (0.3-1.0) H 02/01/18 04:14 AST 95 Units/L (13-39) H 02/01/18 04:14 ALT 37 Units/L (7-52) 02/01/18 04:14 Amylase 809 Units/L (29-103) H 02/01/18 04:14 Lipase 1359 Units/L (11-82) H 02/01/18 04:14 - Impressions Impressions Abdomen Ultrasound 01/31/18 09:30 IMPRESSION: 1. Gallbladder distension. Folding of the gallbladder upon itself. Equivocal trace pericholecystic fluid. No cholelithiasis. Positive sonographic Chen's sign. Further evaluation with nuclear medicine hepatobiliary scan is recommended. 2. Shadowing renal calculus at the mid -lower pole junction of the right kidney. No hydronephrosis. 3. Diffuse fatty infiltration of the liver. 4. Limited exam due to patient's large body habitus and bowel gas. The findings were sent to the Radiology Results Communication [facility] at 12:20 pm on 01/31/2018to be communicated to a licensed caregiver. D/ / Heladio Rosen MD / Heladio Rosen MD Interpreting Provider: Heladio Rosen MD - VTE Documentation of Mechanical Device: Intermittent pneumatic compression device Consult Discharge Plan - Plan [facility]errals: [facility]Primary Care Provider[facility] - 02/10/18 9:45 am (RED TEAM)
[2018-02-01 12:06] LABS: INR 1.5; Prothrombin Time 15.9 Seconds (9.4-12.1)
[2018-02-01] MEDS ORDERED: Heparin 1,000 UNITS/500 mL 500 ML ONE (13:02)
[2018-02-01] MEDS ORDERED: *HR* Propofol 500 MG/50 ML BOTTLE IVP ONE (14:38)
[2018-02-01] MEDS ORDERED: *HR* Midazolam HCl 2 MG/2 ML VIAL IVP ONE ×2 (14:38→15:55)
[2018-02-01] MEDS ORDERED: *HR* FentaNYL (PF) 100 MCG/2 ML VIAL IVP ONE (14:38)
--- NOTE | 2018-02-01 14:47 | Pulmonology Progress Note ---
<Joss Morfin - Last Filed: 02/01/18 14:45> Date of Encounter: 02/01/18 Time of Encounter: 14:30 Assessment and Plan (1) Acute pancreatitis Current Visit: Yes Status: Acute Qualifiers: Pancreatitis type: unspecified pancreatitis type Acute pancreatitis complication: unspecified Qualified Code(s): K85.90 - Acute pancreatitis without necrosis or infection, unspecified (2) YEFRI (acute kidney injury) Current Visit: Yes Status: Acute (3) Hyperkalemia Current Visit: Yes Status: Acute (4) Lactic acidosis Current Visit: Yes Status: Acute (5) Sepsis Current Visit: No Status: Acute Qualifiers: Sepsis type: sepsis due to unspecified organism Qualified Code(s): A41.9 - Sepsis, unspecified organism Objective PUL Vital signs: Last Vital Signs Temp 99.6 F 02/01/18 11:58 Pulse 125 02/01/18 11:58 Resp 33 02/01/18 11:58 BP 95/72 02/01/18 11:58 Pulse Ox 98 02/01/18 11:58 Results - Laboratory Findings CBC and BMP: 02/01/18 04:14 02/01/18 08:33 PT/INR, D-dimer PT 15.9 Seconds (9.4-12.1) H 02/01/18 11:39 Abnormal lab findings: Abnormal lab results WBC 24.6 K/mcL (4.3-11.1) H 02/01/18 04:14 RDW 15.3 % (11.5-14.5) H 02/01/18 04:14 Plt Count 133 K/mcL (140-400) L 02/01/18 04:14 Band Neutrophils % 8.0 % (0-4) H 02/01/18 04:14 Neutrophils # 21.7 K/mcL (1.6-8.9) H 02/01/18 04:14 Monocytes # 2.0 K/mcL (0.0-1.3) H 02/01/18 04:14 Reactive Lymphocytes Present (Not Present) A 01/31/18 05:22 Smudge Cells Present (Not Present) A 01/31/18 05:22 Large Platelets Present (Not Present) A 02/01/18 04:14 Macrocytosis Present (Not Present) A 01/31/18 05:22 PT 15.9 Seconds (9.4-12.1) H 02/01/18 11:39 Potassium 6.1 mEq/L (3.5-5.1) H 02/01/18 08:33 Chloride 109 mEq/L (98-107) H 02/01/18 08:33 Carbon Dioxide 15 mEq/L (23-29) L 02/01/18 08:33 BUN 56 mg/dL (8-23) H 02/01/18 08:33 Creatinine 2.77 mg/dL (0.70-1.30) H 02/01/18 08:33 Est GFR ( Amer) 28 (> 60) L 02/01/18 08:33 Est GFR (Non-Af Amer) 23 (> 60) L 02/01/18 08:33 Glucose 203 mg/dL (70-105) H 02/01/18 08:33 POC Glucose 154 mg/dL (70-99) H 01/31/18 23:52 Calculated Osmolality 307 (280-300) H 02/01/18 08:33 Lactic Acid 4.5 mmol/L (0.5-2.2) H* 02/01/18 08:33 Uric Acid 10.4 mg/dL (2.3-7.6) H 02/01/18 09:53 Calcium 7.1 mg/dL (8.6-10.3) L 02/01/18 08:33 Venous Ioniz Calcium 0.81 mmol/L (1.15-1.35) L 02/01/18 04:37 Total Bilirubin 2.0 mg/dL (0.3-1.0) H 02/01/18 04:14 AST 95 Units/L (13-39) H 02/01/18 04:14 Creatine Kinase 1036 Units/L (30-223) H 02/01/18 09:53 Serum Total Protein 5.4 g/dL (6.4-8.9) L 02/01/18 04:14 Albumin 3.1 g/dL (3.5-5.7) L 02/01/18 04:14 Globulin 2.3 g/dL (2.4-3.5) L 02/01/18 04:14 HDL Cholesterol 28 mg/dL (40-59) L 01/31/18 05:22 Amylase 809 Units/L (29-103) H 02/01/18 04:14 Lipase 1359 Units/L (11-82) H 02/01/18 04:14 Urine Clarity Turbid (Clear) A 01/31/18 11:30 Urine Protein 30 mg/dL (Neg-Trace) H 01/31/18 11:30 Urine Ketones 15 mg/dL (Negative) H 01/31/18 11:30 Urine Blood Trace (Negative) H 01/31/18 11:30 Urine Bilirubin Small (Negative) H 01/31/18 11:30 Ur Leukocyte Esterase Trace (Negative) H 01/31/18 11:30 Urine Microscopic WBC 5-15 per hpf (0-3) H 01/31/18 11:30 Ur Squamous Epith Cells Many per lpf (None-Few) H 01/31/18 11:30 Granular Casts Few per lpf (None Seen) H 01/31/18 11:30 Ur Culture Indicated? NO. (NO) A 01/31/18 11:30 - Clinical Findings Intake & Output: Intake & Output 01/31/18 02/01/18 02/01/18 23:59 07:59 15:59 Intake Total 1000 / 1000 1200 / 1200 100 / 100 Output Total 50 / 50 500 / 500 Balance 950 / 950 700 / 700 100 / 100 Weight 122.7 kg Pulmonary Procedures - Intubation Time out performed: Yes Sedative: Fentanyl Laryngoscope: video scope ET tube size: 7.5 ET tube uncuffed: No Tube secured depth (cm): 23 Tube secured location: lips Tube placement confirmation: visualized tube passing through cords, equal breath sounds bilaterally, no breath sounds over epigastrium, confirmation by capnometry Patient tolerated procedure: well, no complications Intubation complications: none Additional comments: Patient was intubated using 2 mg of Versed, 50 g of fentanyl, and 100 mg of propofol. - VTE Documentation of Mechanical Device: Intermittent pneumatic compression device Consult Discharge Plan - Plan [facility]errals: [facility]Primary Care Provider[facility] - 02/10/18 9:45 am (RED TEAM) <Faith Delgado - Last Filed: 02/01/18 15:42> Date of Encounter: 02/01/18 Objective PUL Vital signs: Last Vital Signs Temp 99.6 F 02/01/18 11:58 Pulse 125 02/01/18 11:58 Resp 23 02/01/18 14:30 BP 89/47 02/01/18 14:30 Pulse Ox 93 02/01/18 14:30 Ventilator Settings Ventilator Settings: Ventilator Settings, Last 8 Hours Ventilator Tidal Volume 500 Setting Ventilator Respiratory Rate 14 Setting Actual Respiratory Rate 23 Positive End Expiratory 5 Pressure Peak Inspiratory Airway 16 Pressure Results - Laboratory Findings CBC and BMP: 02/01/18 04:14 02/01/18 08:33 PT/INR, D-dimer PT 15.9 Seconds (9.4-12.1) H 02/01/18 11:39 Abnormal lab findings: Abnormal lab results WBC 24.6 K/mcL (4.3-11.1) H 02/01/18 04:14 RDW 15.3 % (11.5-14.5) H 02/01/18 04:14 Plt Count 133 K/mcL (140-400) L 02/01/18 04:14 Band Neutrophils % 8.0 % (0-4) H 02/01/18 04:14 Neutrophils # 21.7 K/mcL (1.6-8.9) H 02/01/18 04:14 Monocytes # 2.0 K/mcL (0.0-1.3) H 02/01/18 04:14 Reactive Lymphocytes Present (Not Present) A 01/31/18 05:22 Smudge Cells Present (Not Present) A 01/31/18 05:22 Large Platelets Present (Not Present) A 02/01/18 04:14 Macrocytosis Present (Not Present) A 01/31/18 05:22 PT 15.9 Seconds (9.4-12.1) H 02/01/18 11:39 Potassium 6.1 mEq/L (3.5-5.1) H 02/01/18 08:33 Chloride 109 mEq/L (98-107) H 02/01/18 08:33 Carbon Dioxide 15 mEq/L (23-29) L 02/01/18 08:33 BUN 56 mg/dL (8-23) H 02/01/18 08:33 Creatinine 2.77 mg/dL (0.70-1.30) H 02/01/18 08:33 Est GFR ( Amer) 28 (> 60) L 02/01/18 08:33 Est GFR (Non-Af Amer) 23 (> 60) L 02/01/18 08:33 Glucose 203 mg/dL (70-105) H 02/01/18 08:33 POC Glucose 154 mg/dL (70-99) H 01/31/18 23:52 Calculated Osmolality 307 (280-300) H 02/01/18 08:33 Lactic Acid 4.5 mmol/L (0.5-2.2) H* 02/01/18 08:33 Uric Acid 10.4 mg/dL (2.3-7.6) H 02/01/18 09:53 Calcium 7.1 mg/dL (8.6-10.3) L 02/01/18 08:33 Venous Ioniz Calcium 0.81 mmol/L (1.15-1.35) L 02/01/18 04:37 Total Bilirubin 2.0 mg/dL (0.3-1.0) H 02/01/18 04:14 AST 95 Units/L (13-39) H 02/01/18 04:14 Creatine Kinase 1036 Units/L (30-223) H 02/01/18 09:53 Serum Total Protein 5.4 g/dL (6.4-8.9) L 02/01/18 04:14 Albumin 3.1 g/dL (3.5-5.7) L 02/01/18 04:14 Globulin 2.3 g/dL (2.4-3.5) L 02/01/18 04:14 HDL Cholesterol 28 mg/dL (40-59) L 01/31/18 05:22 Amylase 809 Units/L (29-103) H 02/01/18 04:14 Lipase 1359 Units/L (11-82) H 02/01/18 04:14 Urine Clarity Turbid (Clear) A 01/31/18 11:30 Urine Protein 30 mg/dL (Neg-Trace) H 01/31/18 11:30 Urine Ketones 15 mg/dL (Negative) H 01/31/18 11:30 Urine Blood Trace (Negative) H 01/31/18 11:30 Urine Bilirubin Small (Negative) H 01/31/18 11:30 Ur Leukocyte Esterase Trace (Negative) H 01/31/18 11:30 Urine Microscopic WBC 5-15 per hpf (0-3) H 01/31/18 11:30 Ur Squamous Epith Cells Many per lpf (None-Few) H 01/31/18 11:30 Granular Casts Few per lpf (None Seen) H 01/31/18 11:30 Ur Culture Indicated? NO. (NO) A 01/31/18 11:30 - Clinical Findings Intake & Output: Intake & Output 01/31/18 02/01/18 02/01/18 23:59 07:59 15:59 Intake Total 1000 / 1000 1200 / 1200 100 / 100 Output Total 50 / 50 500 / 500 Balance 950 / 950 700 / 700 100 / 100 Weight 122.7 kg - Attending Attestation I examined this patient and my medical decision-making was reviewed with the Resident Physician. I agree with the documented findings, disposition and treatment plan as described except to the extent set forth below. Patient condition worsen when he came to ICU he was intubated for acute hypoxic respiratory failure and patient was placed on lung protective strategy with low TV. Albumin was given for hypotension post induction for intubation. Critical care time 25 minutes.
[2018-02-01] MEDS: FentaNYL (PF) 1,000 MCG in 0.9 % Sodium Chloride 80 ML IVC SCH ×2 (15:00→19:00)
[2018-02-01] MEDS ORDERED: *HR* Heparin 5,000 UNIT/ML VIAL ONE (15:21)
[2018-02-01] MEDS ORDERED: 0.9 % Sodium Chloride 500 ML ONE ×2 (15:33→16:01)
[2018-02-01] MEDS ORDERED: *HR* Midazolam HCl 5 MG/5 ML VIAL IVP ONE ×2 (15:44→19:43)
[2018-02-01] MEDS ORDERED: *HR* Midazolam HCl 2 MG/2 ML VIAL IVP PRN ×2 (15:55→15:58)
[2018-02-01] MEDS: Dexmedetomidine HCl 400 MCG/100 ML MLS IVC SCH ×2 (16:00→19:01)
--- NOTE | 2018-02-01 16:01 | Procedure Note ---
<Joss Morfin - Last Filed: 02/01/18 16:35> Pre-op diagnosis: acute respiratory failure Post-op diagnosis: same Procedure: Endotracheal intubation This is a 62-year-old male presenting with respiratory failure. It was determined the patient needed definitive airway management. The patient was lying in the supine position. Preoxygenation via BiPAP. Patient had continuous cardiac, pulse oximetry, and blood pressure reading. Patient was given 50 g of fentanyl, 2 mg of Versed and 100 mg of propofol. The CMAC was utilized to visualize the cords and a grade 1 view was easily obtained. A 7.5 cuffed ET tube was passed on the first attempt. The balloon was inflated and we had good color on the ECO2 detector. There were equal breath sounds bilaterally and no breath sounds over the epigastrium. The tube was secured at 23cm at the lips. The patient was placed on full ventilator support with tidal volume at 7 mL/kg of ideal body weight based on his height. He was started on a fentanyl and Precedex drip for pain and sedation. Patient did have brief hypotension following the procedure and was given a bolus of albumin, but otherwise tolerated the procedure well. Surgeon: Joss Morfin Was there an assistant men's soccer coach present: Yes Lip Reading Teacher: Faith Delgado Estimated blood loss (cc): 0 Specimen: none Pathology: none sent Condition: critical Disposition: ICU <Faith Delgado - Last Filed: 02/01/18 17:26> Date of procedure: 02/01/18 Procedure: I examined this patient and my medical decision-making was reviewed with the Resident Physician. I agree with the documented findings, disposition and treatment plan as described except to the extent set forth below. I have personally supervised Dr. Morfin intubating this patient without immediate complications. Correction tidal volume was 6 mL/kg ideal body weight.
[2018-02-01] MEDS ORDERED: *HR* Alteplase (Cathflo) 2 MG VIAL IVP PRN (16:07)
[2018-02-01] MEDS ORDERED: *HR* Heparin 5,000 UNIT/ML VIAL IV PRN (16:07)
[2018-02-01] MEDS ORDERED: Calcium Gluconate 2,000 MG in 0.9 % Sodium Chloride 100 ML IVPB PRN (16:07)
[2018-02-01] MEDS ORDERED: 0.9 % Sodium Chloride 1,000 ML PRIME SCH (16:15)
[2018-02-01] MEDS ORDERED: PRISMASATE BGK CRRT SCH ×6 (16:15→16:27)
[2018-02-01] MEDS ORDERED: Calcium Chloride 4,000 MG in 0.9 % Sodium Chloride 1,000 ML CRRT SCH (16:15)
[2018-02-01] MEDS ORDERED: Norepinephrine 4 MG in D5% in Water 250 ML IVC SCH (16:15)
[2018-02-01] MEDS ORDERED: CALCIUM CHLORIDE CRRT SCH ×6 (16:15→16:27)
[2018-02-01 16:31] LABS: Calcium 6.6 mg/dL (8.6-10.3); Potassium 6.1 mEq/L (3.5-5.1)
[2018-02-01] MEDS ORDERED: Isovue-370 500 ML INFUS..BTL IV ONE (16:55)
--- NOTE | 2018-02-01 16:58 | General Surgery Consult Note ---
<Leah So - Last Filed: 02/01/18 16:55> Date of Encounter: 02/01/18 Time of Encounter: 16:58 Assessment and Plan (1) Acute pancreatitis Status: Acute After further review with the ICU attending (Dr. John) and Dr. Gallo, the patient is recommended a transfer to [facility] in the event there is pancreatic intervention necessary. Surgery agrees this is a reasonable course of action. Originally surgery had placed an order for a CT of the abdomen and pelvis with IV contrast however given this recent development, this order has been canceled. Surgery will sign off at this time given that the patient will be transferred to [facility]. Please reconsult surgery if questions or needs arise. Thank you for allowing us to participate in Mr. Phillips's care. Please see attending attestation for further assessment and plan. Qualifiers: Pancreatitis type: unspecified pancreatitis type Acute pancreatitis complication: unspecified Qualified Code(s): K85.90 - Acute pancreatitis without necrosis or infection, unspecified (2) Sepsis Status: Acute Management per Critical care. See a/p below Qualifiers: Sepsis type: sepsis due to unspecified organism Qualified Code(s): A41.9 - Sepsis, unspecified organism (3) Diverticulitis Status: Acute See a/p above Qualifiers: Diverticulitis site: large intestine Diverticulitis bleeding: without bleeding Diverticulitis complication: without perforation or abscess Qualified Code(s): K57.32 - Diverticulitis of large intestine without perforation or abscess without bleeding (4) COPD (chronic obstructive pulmonary disease) Status: Chronic Qualifiers: COPD type: chronic bronchitis Chronic bronchitis type: simple Qualified Code(s): J41.0 - Simple chronic bronchitis (5) Lactic acidosis Status: Acute History of Present Illness Consult date: 02/01/18 Reason for consult: other (pancreatitis) Requesting physician: Joss Morfin (Dr. Adriano Downey) History of present illness: Leland is a 62 male who presented on 01/30/2018 for complaints of abdominal discomfort. His is at bedside and provides the bulk of his subjective information. The patient has integrated instantly updated and therefore he is unable to provide any subjective information. He has smoked half pack per day for greater than 45 years, very rare alcohol use ( reports they have had a 5th of whiskey in the house for over a year and there is less than one fourth of the bottle gone), diverticulitis, hypertension, COPD , and DJD. He was transferred to the ICU on 02/01/2018 for worsening respiratory status. He was transferred from the [place] hospital and noted his CT of the abdomen and pelvis indicated acute pancreatitis. His families was greater than 3800, lipase greater than 3000, and WBC was 10.6. Currently his white blood cell count is 24.6. G.I. has also been consult did for pancreatitis and notes secondary to gallstone versus EtOH versus unlikely result of medication. Surgery was consult did today for concern for ischemic bowel. Past Med Surg Social Fam HX - Past Medical History Medical history: COPD, coronary artery disease, diabetes, hypertension, other Additional medical history: Pancreatitis, Diverticulosis, DDD, Hernia, GERD Psychiatric history: depression - Past Surgical History Surgical History: appendectomy, other (Open repair of extensor tendon laceration , left long finger) Additional surgical history: L4 L5 back surgery - Social History Smoking Status: Current every day smoker Packs per day: 1/2 Smokeless Tobacco Status: No Alcohol use: rarely Drug use: none - Family History Mother Living Status: Hx Family Cardiac Disorders: Yes (Stroke) Hx Family Cancer: Yes (Breast Ca.) Brother Living Status: Hx Family Cancer: Yes (Throat Ca.) Medications and Allergies Aspirin 325 mg PO DAILY 01/30/18 [History] Atenolol [Tenormin] 25 mg PO DAILY 01/30/18 [History] Ibuprofen [Motrin] 600 mg PO Q8HR PRN 01/30/18 [History] Isosorbide MONOnitrate (24 HR) [Imdur] 60 mg PO DAILY 01/30/18 [History] Loratadine [Allergy Relief] 10 mg PO DAILY 01/30/18 [History] Methocarbamol [Robaxin-750] 750 mg PO Q8H PRN 01/30/18 [History] Multivitamin [One Daily Multivitamin] 1 tab PO DAILY 01/30/18 [History] Omeprazole [PriLOSEC] 20 mg PO DAILY 01/30/18 [History] Simvastatin [Zocor] 10 mg PO HS 01/30/18 [History] 3 Allergy/AdvReac Type Severity Reaction Status Date / Time codeine AdvReac Anxiety Verified 01/30/18 15:57 tramadol AdvReac Anxiety Verified 01/30/18 15:57 Review of Systems ROS unobtainable: due to endotracheal tube All systems PM: The remainder of the systems were reviewed and are negative General Surgery Exam Initial Vital Signs Temp Pulse Resp BP Pulse Ox 98.4 F 85 20 184/103 94 01/30/18 12:59 01/30/18 12:59 01/30/18 12:59 01/30/18 12:59 01/30/18 12:59 - General physical appearance obese, other (Intubated and sedated) - Eyes other - ENT Other - Respiratory other (Mechanical breath sounds) - Cardiovascular Cardiovascular exam: Present: RRR - Abdomen Abdomen general surgery: Present: distended (Absent). Absent: bowel sounds present, tender Hernia: Present: none - Integumentary Integumentary general surgery: Present: other (Petechiae noted on the extremities,: sign versus modeling on the abdomen noted) - Neurologic Present: other (Intubated and sedated) - Musculoskeletal Present: other (Integrated and sedated) - Psychiatric Psychiatric general surgery: Present: other (Intubated and sedated) Exam Initial Vital Signs Temp Pulse Resp BP Pulse Ox 98.4 F 85 20 184/103 94 01/30/18 12:59 01/30/18 12:59 01/30/18 12:59 01/30/18 12:59 01/30/18 12:59 Results - Labs 02/01/18 04:14 02/01/18 15:50 Abnormal lab results WBC 24.6 K/mcL (4.3-11.1) H 02/01/18 04:14 RDW 15.3 % (11.5-14.5) H 02/01/18 04:14 Plt Count 133 K/mcL (140-400) L 02/01/18 04:14 Band Neutrophils % 8.0 % (0-4) H 02/01/18 04:14 Neutrophils # 21.7 K/mcL (1.6-8.9) H 02/01/18 04:14 Monocytes # 2.0 K/mcL (0.0-1.3) H 02/01/18 04:14 Reactive Lymphocytes Present (Not Present) A 01/31/18 05:22 Smudge Cells Present (Not Present) A 01/31/18 05:22 Large Platelets Present (Not Present) A 02/01/18 04:14 Macrocytosis Present (Not Present) A 01/31/18 05:22 PT 15.9 Seconds (9.4-12.1) H 02/01/18 11:39 Potassium 6.1 mEq/L (3.5-5.1) H 02/01/18 15:50 Chloride 111 mEq/L (98-107) H 02/01/18 15:50 Carbon Dioxide 20 mEq/L (23-29) L 02/01/18 15:50 BUN 66 mg/dL (8-23) H 02/01/18 15:50 Creatinine 3.33 mg/dL (0.70-1.30) H 02/01/18 15:50 Est GFR ( Amer) 23 (> 60) L 02/01/18 15:50 Est GFR (Non-Af Amer) 19 (> 60) L 02/01/18 15:50 Glucose 186 mg/dL (70-105) H 02/01/18 15:50 POC Glucose 185 mg/dL (70-99) H 02/01/18 16:17 Calculated Osmolality 316 (280-300) H 02/01/18 15:50 Lactic Acid 3.8 mmol/L (0.5-2.2) H 02/01/18 15:50 Uric Acid 10.4 mg/dL (2.3-7.6) H 02/01/18 09:53 Calcium 6.6 mg/dL (8.6-10.3) L 02/01/18 15:50 Venous Ioniz Calcium 0.81 mmol/L (1.15-1.35) L 02/01/18 04:37 Total Bilirubin 2.0 mg/dL (0.3-1.0) H 02/01/18 04:14 AST 95 Units/L (13-39) H 02/01/18 04:14 Creatine Kinase 1036 Units/L (30-223) H 02/01/18 09:53 Serum Total Protein 5.4 g/dL (6.4-8.9) L 02/01/18 04:14 Albumin 3.1 g/dL (3.5-5.7) L 02/01/18 04:14 Globulin 2.3 g/dL (2.4-3.5) L 02/01/18 04:14 HDL Cholesterol 28 mg/dL (40-59) L 01/31/18 05:22 Amylase 809 Units/L (29-103) H 02/01/18 04:14 Lipase 1359 Units/L (11-82) H 02/01/18 04:14 Urine Clarity Turbid (Clear) A 01/31/18 11:30 Urine Protein 30 mg/dL (Neg-Trace) H 01/31/18 11:30 Urine Ketones 15 mg/dL (Negative) H 01/31/18 11:30 Urine Blood Trace (Negative) H 01/31/18 11:30 Urine Bilirubin Small (Negative) H 01/31/18 11:30 Ur Leukocyte Esterase Trace (Negative) H 01/31/18 11:30 Urine Microscopic WBC 5-15 per hpf (0-3) H 01/31/18 11:30 Ur Squamous Epith Cells Many per lpf (None-Few) H 01/31/18 11:30 Granular Casts Few per lpf (None Seen) H 01/31/18 11:30 Ur Culture Indicated? NO. (NO) A 01/31/18 11:30 Diabetes panel 01/31/18 01/31/18 02/01/18 Range/Units 16:53 21:44 04:14 Sodium 136 137 138 (136-145) mEq/L Potassium 6.5 H* 5.7 H 6.1 H (3.5-5.1) mEq/L Chloride 111 H 112 H 112 H (98-107) mEq/L Carbon Dioxide 14 L 14 L 13 L (23-29) mEq/L BUN 43 H 48 H 54 H (8-23) mg/dL Creatinine 2.83 H 2.95 H 2.87 H (0.70-1.30) mg/dL Glucose 199 H 162 H 189 H (70-105) mg/dL Calcium 7.0 L 7.3 L 6.8 L (8.6-10.3) mg/dL AST 95 H (13-39) Units/L ALT 37 (7-52) Units/L Alkaline Phosphatase 54 (34-104) Units/L Albumin 3.1 L (3.5-5.7) g/dL 02/01/18 02/01/18 Range/Units 08:33 15:50 Sodium 138 141 (136-145) mEq/L Potassium 6.1 H 6.1 H (3.5-5.1) mEq/L Chloride 109 H 111 H (98-107) mEq/L Carbon Dioxide 15 L 20 L (23-29) mEq/L BUN 56 H 66 H (8-23) mg/dL Creatinine 2.77 H 3.33 H (0.70-1.30) mg/dL Glucose 203 H 186 H (70-105) mg/dL Calcium 7.1 L 6.6 L (8.6-10.3) mg/dL AST (13-39) Units/L ALT (7-52) Units/L Alkaline Phosphatase (34-104) Units/L Albumin (3.5-5.7) g/dL Calcium panel 01/31/18 01/31/18 02/01/18 Range/Units 16:53 21:44 04:14 Calcium 7.0 L 7.3 L 6.8 L (8.6-10.3) mg/dL Phosphorus (2.7-4.5) mg/dL Albumin 3.1 L (3.5-5.7) g/dL 02/01/18 02/01/18 02/01/18 Range/Units 08:33 09:53 15:50 Calcium 7.1 L 6.6 L (8.6-10.3) mg/dL Phosphorus 2.8 (2.7-4.5) mg/dL Albumin (3.5-5.7) g/dL Pituitary panel 01/31/18 01/31/18 02/01/18 Range/Units 16:53 21:44 04:14 Sodium 136 137 138 (136-145) mEq/L Potassium 6.5 H* 5.7 H 6.1 H (3.5-5.1) mEq/L Chloride 111 H 112 H 112 H (98-107) mEq/L Carbon Dioxide 14 L 14 L 13 L (23-29) mEq/L BUN 43 H 48 H 54 H (8-23) mg/dL Creatinine 2.83 H 2.95 H 2.87 H (0.70-1.30) mg/dL Glucose 199 H 162 H 189 H (70-105) mg/dL Calcium 7.0 L 7.3 L 6.8 L (8.6-10.3) mg/dL 06/05/18 06/05/18 Range/Units 08:33 15:50 Sodium 138 141 (136-145) mEq/L Potassium 6.1 H 6.1 H (3.5-5.1) mEq/L Chloride 109 H 111 H (98-107) mEq/L Carbon Dioxide 15 L 20 L (23-29) mEq/L BUN 56 H 66 H (8-23) mg/dL Creatinine 2.77 H 3.33 H (0.70-1.30) mg/dL Glucose 203 H 186 H (70-105) mg/dL Calcium 7.1 L 6.6 L (8.6-10.3) mg/dL Adrenal panel 01/31/18 01/31/18 02/01/18 Range/Units 16:53 21:44 04:14 Sodium 136 137 138 (136-145) mEq/L Potassium 6.5 H* 5.7 H 6.1 H (3.5-5.1) mEq/L Chloride 111 H 112 H 112 H (98-107) mEq/L Carbon Dioxide 14 L 14 L 13 L (23-29) mEq/L BUN 43 H 48 H 54 H (8-23) mg/dL Creatinine 2.83 H 2.95 H 2.87 H (0.70-1.30) mg/dL Glucose 199 H 162 H 189 H (70-105) mg/dL Calcium 7.0 L 7.3 L 6.8 L (8.6-10.3) mg/dL Total Bilirubin 2.0 H (0.3-1.0) mg/dL AST 95 H (13-39) Units/L ALT 37 (7-52) Units/L Alkaline Phosphatase 54 (34-104) Units/L Albumin 3.1 L (3.5-5.7) g/dL 02/01/18 02/01/18 Range/Units 08:33 15:50 Sodium 138 141 (136-145) mEq/L Potassium 6.1 H 6.1 H (3.5-5.1) mEq/L Chloride 109 H 111 H (98-107) mEq/L Carbon Dioxide 15 L 20 L (23-29) mEq/L BUN 56 H 66 H (8-23) mg/dL Creatinine 2.77 H 3.33 H (0.70-1.30) mg/dL Glucose 203 H 186 H (70-105) mg/dL Calcium 7.1 L 6.6 L (8.6-10.3) mg/dL Total Bilirubin (0.3-1.0) mg/dL AST (13-39) Units/L ALT (7-52) Units/L Alkaline Phosphatase (34-104) Units/L Albumin (3.5-5.7) g/dL All other labs normal. - Imaging Abdominal x-ray: report reviewed CT scan - chest: report reviewed CT scan - pelvis: report reviewed US - abdomen: report reviewed Consult Discharge Plan - Plan [facility] - 02/10/18 9:45 am (RED TEAM) <Adriano Downey - Last Filed: 02/02/18 06:35> Date of Encounter: 02/01/18 Review of Systems All systems PM: The remainder of the systems were reviewed and are negative General Surgery Exam Initial Vital Signs Temp Pulse Resp BP Pulse Ox 98.4 F 85 20 184/103 94 01/30/18 12:59 01/30/18 12:59 01/30/18 12:59 01/30/18 12:59 01/30/18 12:59 Exam Initial Vital Signs Temp Pulse Resp BP Pulse Ox 98.4 F 85 20 184/103 94 01/30/18 12:59 01/30/18 12:59 01/30/18 12:59 01/30/18 12:59 01/30/18 12:59 Results - Labs 02/01/18 04:14 02/01/18 15:50 Abnormal lab results WBC 24.6 K/mcL (4.3-11.1) H 02/01/18 04:14 RDW 15.3 % (11.5-14.5) H 02/01/18 04:14 Plt Count 133 K/mcL (140-400) L 02/01/18 04:14 Band Neutrophils % 8.0 % (0-4) H 02/01/18 04:14 Neutrophils # 21.7 K/mcL (1.6-8.9) H 02/01/18 04:14 Monocytes # 2.0 K/mcL (0.0-1.3) H 02/01/18 04:14 Reactive Lymphocytes Present (Not Present) A 01/31/18 05:22 Smudge Cells Present (Not Present) A 01/31/18 05:22 Large Platelets Present (Not Present) A 02/01/18 04:14 Macrocytosis Present (Not Present) A 01/31/18 05:22 PT 15.9 Seconds (9.4-12.1) H 02/01/18 11:39 ABG pH 7.22 pH Units (7.32-7.45) L 02/01/18 17:06 ABG pCO2 51 mmHg (35-45) H 02/01/18 17:06 ABG pO2 84 mmHg (85-104) L 02/01/18 17:06 ABG O2 Saturation 94 % (95-98) L 02/01/18 17:06 ABG Base Excess -7 mEq/L (-2 to 3) L 02/01/18 17:06 Potassium 6.1 mEq/L (3.5-5.1) H 02/01/18 15:50 Chloride 111 mEq/L (98-107) H 02/01/18 15:50 Carbon Dioxide 20 mEq/L (23-29) L 02/01/18 15:50 BUN 66 mg/dL (8-23) H 02/01/18 15:50 Creatinine 3.33 mg/dL (0.70-1.30) H 02/01/18 15:50 Est GFR ( Amer) 23 (> 60) L 02/01/18 15:50 Est GFR (Non-Af Amer) 19 (> 60) L 02/01/18 15:50 Glucose 186 mg/dL (70-105) H 02/01/18 15:50 POC Glucose 185 mg/dL (70-99) H 02/01/18 16:17 Calculated Osmolality 316 (280-300) H 02/01/18 15:50 Lactic Acid 3.8 mmol/L (0.5-2.2) H 02/01/18 15:50 Uric Acid 10.4 mg/dL (2.3-7.6) H 02/01/18 09:53 Calcium 6.6 mg/dL (8.6-10.3) L 02/01/18 15:50 Venous Ioniz Calcium 0.81 mmol/L (1.15-1.35) L 02/01/18 04:37 Total Bilirubin 2.0 mg/dL (0.3-1.0) H 02/01/18 04:14 AST 95 Units/L (13-39) H 02/01/18 04:14 Creatine Kinase 1036 Units/L (30-223) H 02/01/18 09:53 Troponin I 0.09 ng/mL (< 0.04) H* 02/01/18 15:50 Serum Total Protein 5.4 g/dL (6.4-8.9) L 02/01/18 04:14 Albumin 3.1 g/dL (3.5-5.7) L 02/01/18 04:14 Globulin 2.3 g/dL (2.4-3.5) L 02/01/18 04:14 HDL Cholesterol 28 mg/dL (40-59) L 01/31/18 05:22 Amylase 809 Units/L (29-103) H 02/01/18 04:14 Lipase 1359 Units/L (11-82) H 02/01/18 04:14 Urine Clarity Turbid (Clear) A 01/31/18 11:30 Urine Protein 30 mg/dL (Neg-Trace) H 01/31/18 11:30 Urine Ketones 15 mg/dL (Negative) H 01/31/18 11:30 Urine Blood Trace (Negative) H 01/31/18 11:30 Urine Bilirubin Small (Negative) H 01/31/18 11:30 Ur Leukocyte Esterase Trace (Negative) H 01/31/18 11:30 Urine Microscopic WBC 5-15 per hpf (0-3) H 01/31/18 11:30 Ur Squamous Epith Cells Many per lpf (None-Few) H 01/31/18 11:30 Granular Casts Few per lpf (None Seen) H 01/31/18 11:30 Ur Culture Indicated? NO. (NO) A 01/31/18 11:30 Diabetes panel 02/01/18 02/01/18 Range/Units 08:33 15:50 Sodium 138 141 (136-145) mEq/L Potassium 6.1 H 6.1 H (3.5-5.1) mEq/L Chloride 109 H 111 H (98-107) mEq/L Carbon Dioxide 15 L 20 L (23-29) mEq/L BUN 56 H 66 H (8-23) mg/dL Creatinine 2.77 H 3.33 H (0.70-1.30) mg/dL Glucose 203 H 186 H (70-105) mg/dL Calcium 7.1 L 6.6 L (8.6-10.3) mg/dL Calcium panel 02/01/18 02/01/18 02/01/18 Range/Units 08:33 09:53 15:50 Calcium 7.1 L 6.6 L (8.6-10.3) mg/dL Phosphorus 2.8 (2.7-4.5) mg/dL Pituitary panel 02/01/18 02/01/18 Range/Units 08:33 15:50 Sodium 138 141 (136-145) mEq/L Potassium 6.1 H 6.1 H (3.5-5.1) mEq/L Chloride 109 H 111 H (98-107) mEq/L Carbon Dioxide 15 L 20 L (23-29) mEq/L BUN 56 H 66 H (8-23) mg/dL Creatinine 2.77 H 3.33 H (0.70-1.30) mg/dL Glucose 203 H 186 H (70-105) mg/dL Calcium 7.1 L 6.6 L (8.6-10.3) mg/dL Adrenal panel 02/01/18 02/01/18 Range/Units 08:33 15:50 Sodium 138 141 (136-145) mEq/L Potassium 6.1 H 6.1 H (3.5-5.1) mEq/L Chloride 109 H 111 H (98-107) mEq/L Carbon Dioxide 15 L 20 L (23-29) mEq/L BUN 56 H 66 H (8-23) mg/dL Creatinine 2.77 H 3.33 H (0.70-1.30) mg/dL Glucose 203 H 186 H (70-105) mg/dL Calcium 7.1 L 6.6 L (8.6-10.3) mg/dL All other labs normal. - Attending Attestation I have personally performed a face to face evaluation on this patient. I have reviewed and agree with the care plan. History and Exam by me shows: Review the above assessment and evaluation and agree with the above plan. Patient has had a history of diverticulitis finger times in the past and the states that he was recently admitted to the hospital secondary to abdominal pain symptoms. He was seen at the [facility] and had labs drawn as well as CT scan study and was subsequently transferred to [facility] with a diagnosis of pancreatitis. This afternoon he was transferred from the floor down to the ICU due to altered mental status and overall worsening hemodynamics. He is currently intubated and sedated on IV pressors. History is obtained from the patient's . Prior to intubation the ICU staff states that she patient did have some significant abdominal pain. I am asked to evaluate the patient to the concern about ischemic bowel. Abdomen is distended and tympanitic with no bowel sounds present. There is some mottling on the skin present. I reviewed the CT scan images and report from January 30 and reviewed the laboratory studies and I do not think that he has evidence of ischemic bowel. I think his primary symptoms are worsening pancreatitis. I would agree with IV antibiotics and continued IV fluid support. The patient does have an elevated bilirubin of 2.0 and based upon his history it sounds that the most likely concern would be gallstone related pancreatitis although no definitive studies were identified with no cholelithiasis or cholelithiasis. He is currently unstable an additional studies would need to be performed including a CT scan with IV contrast or consideration for a gallbladder ultrasound. After discussing this with the care I agree that the most appropriate course would be to go ahead and initiate transfer to [facility].
[2018-02-01 17:10] LABS: ABG Base Excess -7 mEq/L (-2 to 3); ABG HCO3 21 mEq/L (21-27); ABG Oxygen Saturation 94 % (95-98); ABG PCO2 51 mmHg (35-45); ABG PH 7.22 pH Units (7.32-7.45); ABG PO2 84 mmHg (85-104); ABG TCO2 22 mEq/L (20-26); Blood Gas Modality VC; Blood Gas PEEP 5 cm H2O; Blood Gas Respiration Rate 14; Blood Gas VT 500 cc
--- NOTE | 2018-02-01 17:21 | Event Note ---
<Joss Morfin - Last Filed: 02/01/18 17:19> Date of Encounter: 02/01/18 Time of Encounter: 17:19 Surgery evaluated the patient and thought that this could be related to worsening pancreatitis and possibly necrotizing pancreatitis would need escalation and care. We decided to transfer the [facility]. [facility], but we were unable to get in touch with the payroll administrator after multiple attempts. It was presumed that they had sent the patient here that if the patient needed further escalation and care they would be amendable to this. I spoke with [facility] and the on-call surgeon, Dr. Quinn. They did accept the patient for admission to the surgical ICU. Patient will be transported via med flight helicopter and if unavailable, the mobile ICU. Will send copies of records <ErrolchetFaith Haddad - Last Filed: 02/01/18 17:27> Date of Encounter: 02/01/18 I examined this patient and my medical decision-making was reviewed with the Resident Physician. I agree with the documented findings, disposition and treatment plan as described except to the extent set forth below. After discussing this case with art class model Dr. Gallo and then surgeon Dr. Downey we will agreed this patient would be better served at tertiary center where they have more experience with acute pancreatitis with multiorgan failures. We will call with you for transfer.
[2018-02-01 17:26] LABS: Hepatitis B Surface Antigen Nonreactive (Nonreactive)
[2018-02-01 17:28] LABS: Troponin I 0.09 ng/mL (< 0.04)
[2018-02-01] MEDS ORDERED: *HR* Midazolam HCl 2 MG/2 ML VIAL IV ONE (19:43)
[2018-02-01] MEDS ORDERED: *HR* Etomidate 20 MG/10 ML AMPUL IVP ONE (19:43)
[2018-02-01 20:11] VITALS: BP 127/50
--- NOTE | 2018-02-01 20:53 | Electrocardiograph Report ---
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
[2018-02-02 03:37] LABS: Hepatitis A Antibody IgM Nonreactive (Nonreactive); Hepatitis B Core IgM Nonreactive (Nonreactive); Hepatitis B Surface Antigen Nonreactive (Nonreactive); Hepatitis C Virus Antibody Nonreactive (Nonreactive)
[2018-02-02 05:46] LABS: Hepatitis B Surface Antibody 1.24 mIU/mL
--- NOTE | 2018-02-02 09:00 | Discharge Summary ---
<AyeJoss robison - Last Filed: 02/02/18 08:57> Orders not resulted at time of discharge: Pending orders 01/31/18 11:08 Culture,Blood [BC] Stat 01/31/18 16:53 LUIS A IgG RAOUL rflx IFA Routine Immunoglobulin G Subclass 4 Routine 02/01/18 Retroperitoneal Ultrasound - Complete [US retroperitoneal comp] [US] Routine IR cvc insert non tunnel [IR] Routine IR cvc insert non tunnel [IR] Routine IR cvc insert non tunnel [IR] Routine IR us guide needle place [IR] Routine IR us guide venous access [IR] Routine IR us guide venous access [IR] Routine Date of Encounter: 02/01/18 Time of Encounter: 15:00 - Discharge Diagnosis (1) Septic shock Priority: Primary Status: Acute Comments: Secondary to suspected necrotizing pancreatitis. Patient was on appropriate broad-spectrum antibiotics, but suspecting that his pancreatitis that was present on admission had progressed. Patient developed respiratory distress and subsequent failure, hypotension, worsening leukocytosis and lactic acidosis as well as renal failure. Amylase and lipase were very elevated and only slightly trending down on day of transfer but the patient's clinical condition had worsened and was concerned over surgical abdomen from worsening pancreatitis. (2) Acute pancreatitis Priority: Primary Status: Acute Comments: Suspected as the patient's primary source of infection. Was present on admission and continued to worsen throughout his hospital stay. Suspecting that the patient could have been developing necrotizing pancreatitis. He was placed on antibiotics, fluid resuscitation and eventually ended up intubated. His abdomen became increasingly distended and firm with involuntary guarding. Abdominal compartment pressure was measured at 25, but he was not chemically paralyzed. Surgical consult was obtained and elected for transfer for higher level of care. Qualifiers: Pancreatitis type: unspecified pancreatitis type Acute pancreatitis complication: unspecified Qualified Code(s): K85.90 - Acute pancreatitis without necrosis or infection, unspecified (3) YEFRI (acute kidney injury) Priority: Primary Status: Acute Comments: Likely secondary to his septic shock. Hemodialysis access was obtained and placed by interventional radiology with the plan to start due to his kidney injury and refractory hyperkalemia. However, the patient was transferred prior to initiation of dialysis. (4) Hyperkalemia Priority: Secondary Status: Acute Comments: Likely resultant from his acute kidney injury. Was refractory to treatment and hemodialysis was going to be initiated, but patient was transferred prior to initiation (5) Lactic acidosis Priority: Secondary Status: Acute Comments: Was trending up from his septic shock and after intubation and fluid resuscitation was starting to trend down. Concerned that his increasing lactic acidosis could have been from necrotizing pancreatitis and thus was elected to be transferred. (6) Multisystem organ failure Priority: Secondary Status: Acute Comments: Secondary to septic shock from suspected necrotizing pancreatitis. Patient was on full ventilatory support, vasopressors, and was going to be placed on hemodialysis or [place], but was transferred prior to starting dialysis. - Discharge Medications Home Medications: Aspirin 325 mg PO DAILY 01/30/18 [History] Atenolol [Tenormin] 25 mg PO DAILY 01/30/18 [History] Ibuprofen [Motrin] 600 mg PO Q8HR PRN 01/30/18 [History] Isosorbide MONOnitrate (24 HR) [Imdur] 60 mg PO DAILY 01/30/18 [History] Loratadine [Allergy Relief] 10 mg PO DAILY 01/30/18 [History] Methocarbamol [Robaxin-750] 750 mg PO Q8H PRN 01/30/18 [History] Multivitamin [One Daily Multivitamin] 1 tab PO DAILY 01/30/18 [History] Omeprazole [PriLOSEC] 20 mg PO DAILY 01/30/18 [History] Simvastatin [Zocor] 10 mg PO HS 01/30/18 [History] Allergies/Adverse Reactions: 3 Allergy/AdvReac Type Severity Reaction Status Date / Time codeine AdvReac Anxiety Verified 01/30/18 15:57 tramadol AdvReac Anxiety Verified 01/30/18 15:57 Procedures and tests throughout hospitalization: Patient presented from the [facility] on 01/30 for pancreatitis. Outside hospital non-contrast CT scan showed inflammation and stranding surrounding the pancreas, but no evidence of necrosis or bowel obstruction. Subsequently, the patient had an abdominal ultrasound which showed a distended gallbladder, but no cholelithiasis or signs of cholecystitis. On 02/01. The patient had developed respiratory distress and had a chest x-ray before and after intubation as well as a KUB to verify tube placement. The patient had become more septic with increasing lactic acid and concern have developed over the possibility of necrotizing pancreatitis. Surgery was consulted and we elected to transfer. Labs on day of discharge: Labs from last 24 hours 02/01/18 02/01/18 02/01/18 17:06 16:17 15:50 PT INR Sample Site Art Line ABG pH 7.22 L ABG pCO2 51 H ABG pO2 84 L ABG HCO3 21 ABG Total CO2 22 ABG O2 Saturation 94 L ABG Base Excess -7 L Bakari Test N/A Respiration Rate 14 O2 Delivery Device Adult Vent Blood Gas Modality VC Inspired O2 60.0 Tidal Volume 500 PEEP 5 Sodium Potassium Chloride Carbon Dioxide BUN Creatinine Est GFR ( Amer) Est GFR (Non-Af Amer) BUN/Creatinine Ratio Glucose POC Glucose 185 H Calculated Osmolality Lactic Acid Uric Acid Calcium Phosphorus Creatine Kinase Troponin I Rheumatoid Factor Hepatitis A IgM Ab Hep Bs Antigen Nonreactive Hep Bs Antibody 1.24 Hep B Core IgM Ab Hepatitis C Ab Screen 02/01/18 02/01/18 02/01/18 15:50 15:50 12:01 PT INR Sample Site ABG pH ABG pCO2 ABG pO2 ABG HCO3 ABG Total CO2 ABG O2 Saturation ABG Base Excess Bakari Test Respiration Rate O2 Delivery Device Blood Gas Modality Inspired O2 Tidal Volume PEEP Sodium 141 Potassium 6.1 H Chloride 111 H Carbon Dioxide 20 L BUN 66 H Creatinine 3.33 H Est GFR ( Amer) 23 L Est GFR (Non-Af Amer) 19 L BUN/Creatinine Ratio 20 Glucose 186 H POC Glucose 225 H Calculated Osmolality 316 H Lactic Acid 3.8 H Uric Acid Calcium 6.6 L Phosphorus Creatine Kinase Troponin I 0.09 H* Rheumatoid Factor Hepatitis A IgM Ab Hep Bs Antigen Hep Bs Antibody Hep B Core IgM Ab Hepatitis C Ab Screen 02/01/18 02/01/18 02/01/18 11:39 09:53 09:53 PT 15.9 H INR 1.5 Sample Site ABG pH ABG pCO2 ABG pO2 ABG HCO3 ABG Total CO2 ABG O2 Saturation ABG Base Excess Bakari Test Respiration Rate O2 Delivery Device Blood Gas Modality Inspired O2 Tidal Volume PEEP Sodium Potassium Chloride Carbon Dioxide BUN Creatinine Est GFR ( Amer) Est GFR (Non-Af Amer) BUN/Creatinine Ratio Glucose POC Glucose Calculated Osmolality Lactic Acid Uric Acid Calcium Phosphorus Creatine Kinase Troponin I Rheumatoid Factor < 10 Hepatitis A IgM Ab Nonreactive Hep Bs Antigen Nonreactive Hep Bs Antibody Hep B Core IgM Ab Nonreactive Hepatitis C Ab Screen Nonreactive 02/01/18 02/01/18 02/01/18 09:53 08:33 08:33 PT INR Sample Site ABG pH ABG pCO2 ABG pO2 ABG HCO3 ABG Total CO2 ABG O2 Saturation ABG Base Excess Bakari Test Respiration Rate O2 Delivery Device Blood Gas Modality Inspired O2 Tidal Volume PEEP Sodium 138 Potassium 6.1 H Chloride 109 H Carbon Dioxide 15 L BUN 56 H Creatinine 2.77 H Est GFR ( Amer) 28 L Est GFR (Non-Af Amer) 23 L BUN/Creatinine Ratio 20 Glucose 203 H POC Glucose Calculated Osmolality 307 H Lactic Acid 4.5 H* Uric Acid 10.4 H Calcium 7.1 L Phosphorus 2.8 Creatine Kinase 1036 H Troponin I Rheumatoid Factor Hepatitis A IgM Ab Hep Bs Antigen Hep Bs Antibody Hep B Core IgM Ab Hepatitis C Ab Screen - Impressions ITS Impressions Abdomen Ultrasound 01/31/18 09:30 IMPRESSION: 1. Gallbladder distension. Folding of the gallbladder upon itself. Equivocal trace pericholecystic fluid. No cholelithiasis. Positive sonographic Chen's sign. Further evaluation with nuclear medicine hepatobiliary scan is recommended. 2. Shadowing renal calculus at the mid -lower pole junction of the right kidney. No hydronephrosis. 3. Diffuse fatty infiltration of the liver. 4. Limited exam due to patient's large body habitus and bowel gas. The findings were sent to the Radiology Results Communication Center at 12:20 pm on 01/31/2018to be communicated to a licensed caregiver. D/ / Heladio Rosen MD / Heladio Rosen MD Interpreting Provider: Heladio Rosen MD Chest X-Ray 02/01/18 13:41 IMPRESSION: Findings most compatible with acute congestive heart failure with asymmetric parenchymal edema and pleural effusion - right greater than left. However, possibility of superimposed pneumonia right lower lobe cannot be excluded by this exam. D/ / Min Agosto MD / Min Agosto MD Interpreting Provider: Min Agosto MD Chest X-Ray 02/01/18 14:39 IMPRESSION: 1. Endotracheal tube approximately 4.8 cm above the indra. 2. Enlarged cardiac silhouette with mild interstitial edema and a right pleural effusion. 3. Right basilar airspace opacities compatible with atelectasis versus pneumonia. D/ / Josh Mullins MD / Josh Mullins MD Interpreting Provider: Josh Mullins MD X-Ray 02/01/18 14:39 IMPRESSION: Enteric tube in the stomach as above. No evidence of bowel obstruction. D/ / Chencho Farris MD / Chencho Farris MD Interpreting Provider: Chencho Farris MD X-Ray 02/01/18 15:18 IMPRESSION: 1. Right-sided central venous catheter tips overlie the IVC. 2. Right common femoral arterial line tip overlies the external iliac artery. D/ / Pa Giordano MD / Pa Giordano MD Interpreting Provider: Pa Giordano MD Date of admission: 01/30/18 16:05 [facility] care physician: [facility] Consults: 01/31/18 07:47 Consult to Gastroenterology [CONS] Routine Consulting Provider: [facility] [place] Reason for Consult: acute pancreatitis Time Notified: 07:48 Call Completed: Yes 01/31/18 18:08 Consult to Nephrology [CONS] Routine Consulting Provider: [facility] [place]/ANITA/STEPHIE/FE Reason for Consult: Worsening YEFRI Time Notified: 18:09 Call Completed: Yes 02/01/18 10:48 Consult to Pulmonology [CONS] Stat Consulting Provider: [facility] Reason for Consult: Respiratory failure, lactic acidosis, YEFRI, Hyperkalemia, acute pancreatitis Time Notified: 10:48 Call Completed: Yes 02/01/18 10:54 Consult to Interventional Radiology [CONS] Stat Consulting Provider: Radiology Interventional [facility] Reason for Consult: Please place temporary HD line. He has been NPO. Thanks! Time Notified: 10:54 Call Completed: Yes 02/01/18 16:20 Consult to Surgery [CONS] Stat Consulting Provider: Devyn Dennison Surgical Reason for Consult: ischemic bowel Time Notified: 16:21 Call Completed: Yes Discharging clinician: Joss Morfin Anticipated date of discharge: 02/01/18 - Patient Status Disposition: Transfer Short-Term Hosp Condition: Critical - Discharge Instructions Follow Up With: [place],PCP [Primary Care Provider] - 02/10/18 9:45 am (RED TEAM) - Hospital Course Hospital course: Mr. Phillips is a 62 year old male who presented as a transfer from the [facility] with acute pancreatitis. It was unclear what the etiology of his pancreatitis was. The patient was not a known alcoholic, but did admit to occasional drinking and this was confirmed with the family. Abdominal ultrasound did not reveal any obstructing gall stones or concerning lesions. Outside hospital noncontrasted CT scan of the abdomen and pelvis showed significant stranding and inflammation around the pancreas. His initial lipase was unmeasurable high and amylase was elevated as well. On 01/31, he developed a leukocytosis of 27,000, acute kidney injury with a creatinine of 2.95, and a lactic acid of 4.0. Patient was placed on Zosyn. Patient subsequently developed worsening renal failure and hyperkalemia, which was refractory to medical therapy. On 02/01 he was becoming altered with shortness of breath. Nephrology was consulted and did want to start hemodialysis and subsequently IR was consulted to place a hemodialysis catheter. Prior to catheter placement. The patient's respiratory status and mental status continued to decline and he was electively intubated for acute respiratory failure and airway protection. The patient had been hypotensive and was started on vasopressor therapy. After intubation, an OG tube was placed due to significant abdominal distention and very little fluid was obtained, only about 150 mL of bilious fluid. The patient 's abdomen was becoming increasingly distended and firm with involuntary guarding. Repeat lactic acid was trending down but the patient's clinical condition was worsening. We consulted surgery and GI who was agreeable that this was likely related to worsening pancreatitis and possibly necrotizing pancreatitis. It was discussed that the patient may need further imaging such as a contrasted CT of abdomen and pelvis, however, he was felt to be unstable for CT at that time and that due to his worsening condition and suspected surgical origin that he would benefit from a higher level of care. He was transferred to [facility] via med flight in critical but stable condition. - Time Spent with Patient Total time spent providing and/or coordinating discharge services: Greater than 30 minutes Physical Examination General appearance: other (intubated, sedated) Eyes: nonicteric ENT: oropharynx moist Effort: other (vent initiated ) Inspection: normal Auscultation: bilateral: diminished breath sounds Cardiovascular: regular rate and rhythm Gastrointestinal: absent bowel sounds, tender, guarding, other (Distended, tense , borderline rigid, mottled) Integumentary: other (Cool, mottled skin, no rash) Extremities: cool, edema Musculoskeletal: no deformities pupils equal and round, unable to assess due to mental status - VTE Documentation of Mechanical Device: Intermittent pneumatic compression device <Faith Delgado M - Last Filed: 02/02/18 09:55> Orders not resulted at time of discharge: Pending orders 01/31/18 11:08 Culture,Blood [BC] Stat 01/31/18 16:53 LUIS A IgG RAOUL rflx IFA Routine Immunoglobulin G Subclass 4 Routine 02/01/18 Retroperitoneal Ultrasound - Complete [US retroperitoneal comp] [US] Routine IR cvc insert non tunnel [IR] Routine IR cvc insert non tunnel [IR] Routine IR cvc insert non tunnel [IR] Routine IR us guide needle place [IR] Routine IR us guide venous access [IR] Routine IR us guide venous access [IR] Routine Date of Encounter: 02/02/18 Labs on day of discharge: Labs from last 24 hours 02/01/18 02/01/18 02/01/18 17:06 16:17 15:50 PT INR Sample Site Art Line ABG pH 7.22 L ABG pCO2 51 H ABG pO2 84 L ABG HCO3 21 ABG Total CO2 22 ABG O2 Saturation 94 L ABG Base Excess -7 L Bakari Test N/A Respiration Rate 14 O2 Delivery Device Adult Vent Blood Gas Modality VC Inspired O2 60.0 Tidal Volume 500 PEEP 5 Sodium Potassium Chloride Carbon Dioxide BUN Creatinine Est GFR ( Amer) Est GFR (Non-Af Amer) BUN/Creatinine Ratio Glucose POC Glucose 185 H Calculated Osmolality Lactic Acid Uric Acid Calcium Phosphorus Creatine Kinase Troponin I Rheumatoid Factor Hepatitis A IgM Ab Hep Bs Antigen Nonreactive Hep Bs Antibody 1.24 Hep B Core IgM Ab Hepatitis C Ab Screen 02/01/18 02/01/18 02/01/18 15:50 15:50 12:01 PT INR Sample Site ABG pH ABG pCO2 ABG pO2 ABG HCO3 ABG Total CO2 ABG O2 Saturation ABG Base Excess Bakari Test Respiration Rate O2 Delivery Device Blood Gas Modality Inspired O2 Tidal Volume PEEP Sodium 141 Potassium 6.1 H Chloride 111 H Carbon Dioxide 20 L BUN 66 H Creatinine 3.33 H Est GFR ( Amer) 23 L Est GFR (Non-Af Amer) 19 L BUN/Creatinine Ratio 20 Glucose 186 H POC Glucose 225 H Calculated Osmolality 316 H Lactic Acid 3.8 H Uric Acid Calcium 6.6 L Phosphorus Creatine Kinase Troponin I 0.09 H* Rheumatoid Factor Hepatitis A IgM Ab Hep Bs Antigen Hep Bs Antibody Hep B Core IgM Ab Hepatitis C Ab Screen 02/01/18 02/01/18 02/01/18 11:39 09:53 09:53 PT 15.9 H INR 1.5 Sample Site ABG pH ABG pCO2 ABG pO2 ABG HCO3 ABG Total CO2 ABG O2 Saturation ABG Base Excess Bakari Test Respiration Rate O2 Delivery Device Blood Gas Modality Inspired O2 Tidal Volume PEEP Sodium Potassium Chloride Carbon Dioxide BUN Creatinine Est GFR ( Amer) Est GFR (Non-Af Amer) BUN/Creatinine Ratio Glucose POC Glucose Calculated Osmolality Lactic Acid Uric Acid Calcium Phosphorus Creatine Kinase Troponin I Rheumatoid Factor < 10 Hepatitis A IgM Ab Nonreactive Hep Bs Antigen Nonreactive Hep Bs Antibody Hep B Core IgM Ab Nonreactive Hepatitis C Ab Screen Nonreactive 02/01/18 09:53 PT INR Sample Site ABG pH ABG pCO2 ABG pO2 ABG HCO3 ABG Total CO2 ABG O2 Saturation ABG Base Excess Bakari Test Respiration Rate O2 Delivery Device Blood Gas Modality Inspired O2 Tidal Volume PEEP Sodium Potassium Chloride Carbon Dioxide BUN Creatinine Est GFR ( Amer) Est GFR (Non-Af Amer) BUN/Creatinine Ratio Glucose POC Glucose Calculated Osmolality Lactic Acid Uric Acid 10.4 H Calcium Phosphorus 2.8 Creatine Kinase 1036 H Troponin I Rheumatoid Factor Hepatitis A IgM Ab Hep Bs Antigen Hep Bs Antibody Hep B Core IgM Ab Hepatitis C Ab Screen - Impressions ITS Impressions Abdomen Ultrasound 01/31/18 09:30 IMPRESSION: 1. Gallbladder distension. Folding of the gallbladder upon itself. Equivocal trace pericholecystic fluid. No cholelithiasis. Positive sonographic Chen's sign. Further evaluation with nuclear medicine hepatobiliary scan is recommended. 2. Shadowing renal calculus at the mid -lower pole junction of the right kidney. No hydronephrosis. 3. Diffuse fatty infiltration of the liver. 4. Limited exam due to patient's large body habitus and bowel gas. The findings were sent to the Radiology Results Communication Center at 12:20 pm on 01/31/2018to be communicated to a licensed caregiver. D/ / eHladio Rosen MD / Heladio Rosen MD Interpreting Provider: Heladio Rosen MD Chest X-Ray 02/01/18 13:41 IMPRESSION: Findings most compatible with acute congestive heart failure with asymmetric parenchymal edema and pleural effusion - right greater than left. However, possibility of superimposed pneumonia right lower lobe cannot be excluded by this exam. D/ / Min Agosto MD / Min Agosto MD Interpreting Provider: Min Agosto MD Chest X-Ray 02/01/18 14:39 IMPRESSION: 1. Endotracheal tube approximately 4.8 cm above the indra. 2. Enlarged cardiac silhouette with mild interstitial edema and a right pleural effusion. 3. Right basilar airspace opacities compatible with atelectasis versus pneumonia. D/ / Josh Mullins MD / Josh Mullins MD Interpreting Provider: Josh Mullins MD X-Ray 02/01/18 14:39 IMPRESSION: Enteric tube in the stomach as above. No evidence of bowel obstruction. D/ / Chencho Farris MD / Chencho Farris MD Interpreting Provider: Chencho Farris MD X-Ray 02/01/18 15:18 IMPRESSION: 1. Right-sided central venous catheter tips overlie the IVC. 2. Right common femoral arterial line tip overlies the external iliac artery. D/ / Pa Giordano MD / Pa Giordano MD Interpreting Provider: Pa Giordano MD Date of admission: 01/30/18 16:05 [facility] care physician[facility] Consults: 01/31/18 07:47 Consult to Gastroenterology [CONS] Routine Consulting Provider: [facility] [place] Reason for Consult: acute pancreatitis Time Notified: 07:48 Call Completed: Yes 01/31/18 18:08 Consult to Nephrology [CONS] Routine Consulting Provider: [facility]/ANITA/STEPHIE/FE Reason for Consult: Worsening YEFRI Time Notified: 18:09 Call Completed: Yes 02/01/18 10:48 Consult to Pulmonology [CONS] Stat Consulting Provider: [facility] [place] Reason for Consult: Respiratory failure, lactic acidosis, YEFRI, Hyperkalemia, acute pancreatitis Time Notified: 10:48 Call Completed: Yes 02/01/18 10:54 Consult to Interventional Radiology [CONS] Stat Consulting Provider: Radiology Interventional [facility] Reason for Consult: Please place temporary HD line. He has been NPO. Thanks! Time Notified: 10:54 Call Completed: Yes 02/01/18 16:20 Consult to Surgery [CONS] Stat Consulting Provider: Surgery [facility] Reason for Consult: ischemic bowel Time Notified: 16:21 Call Completed: Yes - Hospital Course Hospital course: Mr. Phillips is a 62 year old male - Time Spent with Patient Total time spent providing and/or coordinating discharge services: - Attending Attestation I examined this patient and my medical decision-making was reviewed with the Resident Physician. I agree with the documented findings, disposition and treatment plan as described except to the extent set forth below. Discharge/transfer was done on 02/01/2018 Patient with severe pancreatitis and his condition was deteriorated with multiorgan failures. Case was discussed with the surgeon and bonding machine setter and recommendation was to transfer patient to tertiary center.
[2018-02-03 07:27] LABS: Immunoglobulin G Subclass 4 62 mg/dL (1-123)
[2018-02-03 13:25] LABS: ANA IgG by ELISA NONE DETECTED (None Detected)
== END 2018-02-01 19:44 | disposition short-term general hospital (02) | DRG 871 ==
LOC: EMEROO 12:58 → 3BNU 16:05 → 2NNU 01-31 07:45 → ICNU 02-01 14:15
PROVIDERS: ADMIT Family Medicine; ATTEND Family Medicine